=== PATIENT | male | born 1965 | race Caucasian/White ===

== ENCOUNTER 2018-11-15 23:06 | Inpatient (IN) | payer MEDICAID ==
[~2018-11-15] VITALS: Ht 172.7 cm; Wt 71.9 kg
[2018-11-15] MEDS ORDERED: NO HOME MEDS (23:20)
[2018-11-15 23:30] LABS: BASOPHILS # (AUTO) 0.1 X10'3 (0-0.2); BASOPHILS % (AUTO) 0.7 % (0-1); EOSINOPHILS % (AUTO) 0.2 % (0-6); HEMOGLOBIN 14.8 g/dl (14.0-17.9); LYMPHOCYTES # (AUTO) 1.7 X10'3 (1.1-4.8); MEAN CORPUSCULAR HGB CONC 32.9 g/dL (33.0-36.5); MEAN CORPUSCULAR VOLUME 94.2 FL (78-98); MONOCYTES # (AUTO) 0.4 X10'3 (0-0.9); MONOCYTES % (AUTO) 5.8 % (2-12)
[2018-11-15 23:32] LABS: HEMATOCRIT 44.9 % (42.0-52.0); LYMPHOCYTES % (AUTO) 22.2 % (21-51); NEUTROPHILS # (AUTO) 5.4 X10'3 (1.8-7.7); NEUTROPHILS % (AUTO) 71.1 % (42-75); PLATELET COUNT 186 X10'3 (140-440); RED BLOOD COUNT 4.77 X10'6 (4.70-6.10); RED CELL DISTRIBUTION WIDTH 14.7 % (11.5-14.5); WHITE BLOOD COUNT 7.6 X10'3 (4.5-11.0)
[2018-11-15 23:39] LABS: ALANINE AMINOTRANSFERASE 27 U/L (12-78); ALBUMIN 2.7 G/DL (3.4-5.0); ALBUMIN/GLOBULIN RATIO 0.7 (1.1-1.5); ALKALINE PHOSPHATASE 69 IU/L (46-116); ANION GAP 9 (8-16); ASPARTATE AMINO TRANSFERASE 32 U/L (10-37); BILIRUBIN,TOTAL 0.8 MG/DL (0.1-1.0); BLOOD UREA NITROGEN 16 MG/DL (7-18); BUN/CREATININE RATIO 14.2 (5.4-32.0); CALCIUM 7.9 MG/DL (8.5-10.1); CHLORIDE 108 MMOL/L (99-107); CREATININE 1.13 MG/DL (0.60-1.10); GLUCOSE 117 MG/DL (70-104); POTASSIUM 4.2 MMOL/L (3.5-5.1); SODIUM 141 MMOL/L (135-145); TOTAL CARBON DIOXIDE 24.2 MMOL/L (24-32); TOTAL PROTEIN 6.4 G/DL (6.4-8.2); eGFR 68 ML/MIN
[2018-11-16 00:11] LABS: PARTIAL THROMBOPLASTIN TIME 25 SECONDS (22-32)
--- NOTE | 2018-11-16 00:38 | NUR ---
PER MD WEAVER, OKAY TO HOLD OFF ON COLLECTING URINE FROM PT AT THIS TIME, A URINE WAS COLLECTED BY TRANSFERRING FACILITY PRIOR TO TRANSFER
[2018-11-16] MEDS ORDERED: furosemide 10 MG/1 ML 10ml inj IV ONE (00:45)
[2018-11-16] MEDS ORDERED: furosemide 40mg/4ml inj IV ONE ×2 (01:10→11:10)
[2018-11-16] MEDS ORDERED: magnesium hydroxide 30ml (MOM) UD suspension PO PRN (01:25)
[2018-11-16] MEDS ORDERED: mag hydrox/Alum hydrox/simeth 30ml oral suspension PO PRN (01:25)
[2018-11-16] MEDS ORDERED: acetaminophen 325mg tablet PO PRN (01:25)
[2018-11-16] MEDS ORDERED: morphine 2 MG/ML inj. syringe IV PRN ×2 (01:25)
[2018-11-16] MEDS ORDERED: ondansetron/PF 4mg/2ml inj IV PRN (01:25)
[2018-11-16 03:05] VITALS: BP 153/127
--- NOTE | 2018-11-16 03:27 | NUR ---
Patient in room [facility] 3017. I have received report from BERNARDA Estrada and had the opportunity to ask questions and assume patient care. Addendum: 11/16/18 at 0633 by Carmel Miller RN Patient in room [facility] 3013. I have received report from Remington and had the opportunity to ask questions and assume patient care.
--- NOTE | 2018-11-16 06:35 | NUR ---
Problems reprioritized. Patient report given, questions answered & plan of care reviewed with Carmel MENCHACA/Bela MENCHACA.
[2018-11-16 07:05] VITALS: BP 164/125
[2018-11-16] MEDS ORDERED: carVEDilol 3.125mg tablet PO SCH (08:00)
[2018-11-16] MEDS: heparin, porcine 5000 units/ml vial SQ SCH ×2 (08:11→20:28)
--- NOTE | 2018-11-16 08:24 | NUR ---
Page sent to Dr. Fraga PAGER ID: [phone] MESSAGE: [id number] Agustin Mckeon, BP 166/124, no blood pressure medications. Please advise. Carmel MENCHACA [phone]
[2018-11-16 11:00] VITALS: BP 161/114
[2018-11-16] MEDS: carvedilol 6.25mg tablet PO SCH ×2 (11:26→20:29)
[2018-11-16] MEDS: lisinopril 20mg tablet PO SCH (11:27)
[2018-11-16 11:53] LABS: HEMOGLOBIN A1C 6.2 % (4.5-6.2)
[2018-11-16 12:03] LABS: CHOL/HDL RATIO 3.2 (0.00-4.99); CHOLESTEROL 67 MG/DL (0-200); HDL CHOLESTEROL 21 MG/DL (35-60); LDL CHOLESTEROL 46 MG/DL (50-100); TRIGLYCERIDES 64 MG/DL (20-135)
[2018-11-16 15:00] VITALS: BP 137/107
[2018-11-16] MEDS ORDERED: potassium CL 10mEq/100ml bag 100 ML IV PRN (16:00)
[2018-11-16] MEDS ORDERED: potassium Cl 20 mEq SR tablet PO PRN (16:00)
[2018-11-16] MEDS ORDERED: magnesium 4gm in 100ml NS 100 ML IV PRN (16:00)
[2018-11-16] MEDS ORDERED: magnesium Cl slow-release 64mg tablet PO PRN (16:00)
[2018-11-16] MEDS ORDERED: magnesium 2GM in 50ml NS 50 ML IV PRN (16:00)
--- NOTE | 2018-11-16 18:01 | NUR ---
I have reviewed and agree with all interventions, assessments performed and documented by Carmel MENCHACA.
--- NOTE | 2018-11-16 18:22 | NUR ---
Problems reprioritized. Patient report given, questions answered & plan of care reviewed with Gabby.
[2018-11-16 19:00] VITALS: BP 137/107
--- NOTE | 2018-11-16 19:12 | NUR ---
Patient in room [facility] 3017B. I have received report from BERNARDA Cramer and had the opportunity to ask questions and assume patient care. Patient awake for bedside report and stable at this time. Will continue to monitor closely.
[2018-11-16] MEDS: furosemide 40mg/4ml inj IV SCH (20:27)
[2018-11-16] MEDS ORDERED: carvedilol 6.25mg tablet PO ONE (22:35)
--- NOTE | 2018-11-16 22:49 | NUR ---
Patient has been trending high systolic and diastolic BP. Dr. Tubbs notified of 2200 BP 142/108. New orders received for one time give of 6.25mg carvedilol, DC 6.25 mg BID, start 12.5 mg BID.
[2018-11-16 23:00] VITALS: BP 133/104
[2018-11-17] VITALS (7 sets, daily range): BP systolic 129–142; BP diastolic 53–99
[2018-11-17 05:27] LABS: BASOPHILS # (AUTO) 0.1 X10'3 (0-0.2); BASOPHILS % (AUTO) 0.9 % (0-1); EOSINOPHILS # (AUTO) 0.1 X10'3 (0-0.9); EOSINOPHILS % (AUTO) 1.2 % (0-6); HEMATOCRIT 42.8 % (42.0-52.0); HEMOGLOBIN 14.1 g/dl (14.0-17.9); LYMPHOCYTES # (AUTO) 1.7 X10'3 (1.1-4.8); LYMPHOCYTES % (AUTO) 21.9 % (21-51); MEAN CORPUSCULAR HEMOGLOBIN 31.3 PG (27.0-31.0); MEAN CORPUSCULAR HGB CONC 32.8 g/dL (33.0-36.5); MEAN CORPUSCULAR VOLUME 95.3 FL (78-98); MEAN PLATELET VOLUME 10.3 FL (7.4-10.4); MONOCYTES # (AUTO) 0.5 X10'3 (0-0.9); MONOCYTES % (AUTO) 6.2 % (2-12); NEUTROPHILS # (AUTO) 5.3 X10'3 (1.8-7.7); NEUTROPHILS % (AUTO) 69.8 % (42-75); PLATELET COUNT 153 X10'3 (140-440); RED BLOOD COUNT 4.49 X10'6 (4.70-6.10); RED CELL DISTRIBUTION WIDTH 14.5 % (11.5-14.5); WHITE BLOOD COUNT 7.7 X10'3 (4.5-11.0)
[2018-11-17 05:56] LABS: ALANINE AMINOTRANSFERASE 19 U/L (12-78); ALBUMIN 2.4 G/DL (3.4-5.0); ALBUMIN/GLOBULIN RATIO 0.7 (1.1-1.5); ALKALINE PHOSPHATASE 59 IU/L (46-116); ANION GAP 7 (8-16); ASPARTATE AMINO TRANSFERASE 24 U/L (10-37); BILIRUBIN,TOTAL 0.9 MG/DL (0.1-1.0); BLOOD UREA NITROGEN 23 MG/DL (7-18); BUN/CREATININE RATIO 16.4 (5.4-32.0); CALCIUM 8.2 MG/DL (8.5-10.1); CHLORIDE 107 MMOL/L (99-107); GLUCOSE 107 MG/DL (70-104); POTASSIUM 3.7 MMOL/L (3.5-5.1); SODIUM 141 MMOL/L (135-145); TOTAL CARBON DIOXIDE 26.6 MMOL/L (24-32); TOTAL PROTEIN 5.8 G/DL (6.4-8.2); eGFR 53 ML/MIN
--- NOTE | 2018-11-17 06:24 | NUR ---
Patient in room PCU 3017. I have received report from Lloyd MENCHACA and had the opportunity to ask questions and assume patient care. Patient resting comfortably, and stable at time of transfer.
--- NOTE | 2018-11-17 06:26 | NUR ---
Problems reprioritized. Patient report given, questions answered & plan of care reviewed with BERNARDA Todd and BERNARDA Peoples.
[2018-11-17] MEDS: furosemide 40mg/4ml inj IV SCH ×2 (08:37→19:41)
[2018-11-17] MEDS: carVEDilol 12.5mg tablet PO SCH ×2 (08:38→19:41)
[2018-11-17] MEDS: lisinopril 20mg tablet PO SCH (08:38)
[2018-11-17] MEDS: heparin, porcine 5000 units/ml vial SQ SCH ×2 (08:39→19:41)
--- NOTE | 2018-11-17 18:24 | NUR ---
[place]rient[place] documentation: I have reviewed and agree with interventions, assessments performed and documented by Richelle MENCHACA. [place] Medication Administration: For this medication-pass time frame, medication were reviewed, dispensed, administered and documented per hospital policy by Richelle MENCHACA.
--- NOTE | 2018-11-17 18:25 | NUR ---
Problems reprioritized. Patient report given, questions answered & plan of care reviewed with. Patient sleeping comfortably. Patient stable at transfer of care.
--- NOTE | 2018-11-17 18:29 | NUR ---
Patient in room PCU 3017. I have received report from Peyton RN and Richelle RN and had the opportunity to ask questions and assume patient care.
[2018-11-18] VITALS (7 sets, daily range): BP systolic 116–152; BP diastolic 88–112
[2018-11-18 06:00] LABS: BASOPHILS # (AUTO) 0.1 X10'3 (0-0.2); BASOPHILS % (AUTO) 0.9 % (0-1); EOSINOPHILS # (AUTO) 0.1 X10'3 (0-0.9); EOSINOPHILS % (AUTO) 1.1 % (0-6); HEMATOCRIT 44.3 % (42.0-52.0); HEMOGLOBIN 14.4 g/dl (14.0-17.9); LYMPHOCYTES # (AUTO) 1.9 X10'3 (1.1-4.8); MEAN CORPUSCULAR HGB CONC 32.6 g/dL (33.0-36.5); MEAN CORPUSCULAR VOLUME 95.2 FL (78-98); MEAN PLATELET VOLUME 11.2 FL (7.4-10.4); MONOCYTES # (AUTO) 0.6 X10'3 (0-0.9); MONOCYTES % (AUTO) 8.1 % (2-12); NEUTROPHILS # (AUTO) 5.2 X10'3 (1.8-7.7); NEUTROPHILS % (AUTO) 65.9 % (42-75); PLATELET COUNT 176 X10'3 (140-440); RED BLOOD COUNT 4.65 X10'6 (4.70-6.10); RED CELL DISTRIBUTION WIDTH 14.3 % (11.5-14.5); WHITE BLOOD COUNT 7.8 X10'3 (4.5-11.0)
--- NOTE | 2018-11-18 06:15 | NUR ---
Problems reprioritized. Patient report given, questions answered & plan of care reviewed with BERNARDA Todd.
--- NOTE | 2018-11-18 06:20 | NUR ---
Patient in room PCU 3017. I have received report from BERNARDA Hallman and had the opportunity to ask questions and assume patient care.
[2018-11-18 06:40] LABS: ALANINE AMINOTRANSFERASE 19 U/L (12-78); ALBUMIN 2.4 G/DL (3.4-5.0); ALBUMIN/GLOBULIN RATIO 0.7 (1.1-1.5); ALKALINE PHOSPHATASE 58 IU/L (46-116); ANION GAP 9 (8-16); ASPARTATE AMINO TRANSFERASE 22 U/L (10-37); BILIRUBIN,TOTAL 0.6 MG/DL (0.1-1.0); BLOOD UREA NITROGEN 28 MG/DL (7-18); CALCIUM 8.1 MG/DL (8.5-10.1); CHLORIDE 106 MMOL/L (99-107); CREATININE 1.47 MG/DL (0.60-1.10); GLUCOSE 111 MG/DL (70-104); POTASSIUM 3.4 MMOL/L (3.5-5.1); SODIUM 142 MMOL/L (135-145); TOTAL CARBON DIOXIDE 26.8 MMOL/L (24-32); TOTAL PROTEIN 5.9 G/DL (6.4-8.2); eGFR 50 ML/MIN
[2018-11-18 07:19] LABS: LARGE PLATELETS FEW; PLATELET ESTIMATE NORMAL
[2018-11-18] MEDS: furosemide 40mg/4ml inj IV SCH (08:12)
[2018-11-18] MEDS: potassium Cl 20 mEq SR tablet PO PRN ×3 (08:12→19:46)
[2018-11-18] MEDS: heparin, porcine 5000 units/ml vial SQ SCH ×2 (08:12→19:45)
[2018-11-18] MEDS: spironolactone 25 MG tablet PO SCH (08:13)
[2018-11-18] MEDS: carVEDilol 12.5mg tablet PO SCH ×2 (08:13→19:46)
[2018-11-18] MEDS: lisinopril 20mg tablet PO SCH (08:17)
--- NOTE | 2018-11-18 18:35 | NUR ---
Problems reprioritized. Patient report given, questions answered & plan of care reviewed with Gerardo MENCHACA. Patient stable at transfer of care.
--- NOTE | 2018-11-18 18:36 | NUR ---
Patient in room PCU 3017. I have received report from BERNARDA Kim and had the opportunity to ask questions and assume patient care.
[2018-11-19 02:00] VITALS: BP 146/84
[2018-11-19 06:13] LABS: BASOPHILS # (AUTO) 0.1 X10'3 (0-0.2); BASOPHILS % (AUTO) 0.9 % (0-1); EOSINOPHILS % (AUTO) 0.1 % (0-6); HEMATOCRIT 47.4 % (42.0-52.0); HEMOGLOBIN 15.4 g/dl (14.0-17.9); LYMPHOCYTES # (AUTO) 2.1 X10'3 (1.1-4.8); LYMPHOCYTES % (AUTO) 26.7 % (21-51); MEAN CORPUSCULAR HGB CONC 32.5 g/dL (33.0-36.5); MEAN CORPUSCULAR VOLUME 95.2 FL (78-98); MEAN PLATELET VOLUME 11.4 FL (7.4-10.4); MONOCYTES # (AUTO) 0.6 X10'3 (0-0.9); NEUTROPHILS # (AUTO) 5.1 X10'3 (1.8-7.7); NEUTROPHILS % (AUTO) 64.3 % (42-75); PLATELET COUNT 185 X10'3 (140-440); RED BLOOD COUNT 4.98 X10'6 (4.70-6.10); RED CELL DISTRIBUTION WIDTH 14.5 % (11.5-14.5); WHITE BLOOD COUNT 7.9 X10'3 (4.5-11.0)
[2018-11-19 06:34] LABS: ALANINE AMINOTRANSFERASE 36 U/L (12-78); ALBUMIN 2.5 G/DL (3.4-5.0); ALBUMIN/GLOBULIN RATIO 0.7 (1.1-1.5); ALKALINE PHOSPHATASE 59 IU/L (46-116); ANION GAP 10 (8-16); ASPARTATE AMINO TRANSFERASE 63 U/L (10-37); BLOOD UREA NITROGEN 33 MG/DL (7-18); BUN/CREATININE RATIO 21.9 (5.4-32.0); CALCIUM 7.9 MG/DL (8.5-10.1); CHLORIDE 106 MMOL/L (99-107); CREATININE 1.51 MG/DL (0.60-1.10); GLUCOSE 114 MG/DL (70-104); POTASSIUM 4.4 MMOL/L (3.5-5.1); SODIUM 141 MMOL/L (135-145); TOTAL CARBON DIOXIDE 24.6 MMOL/L (24-32); TOTAL PROTEIN 5.9 G/DL (6.4-8.2); eGFR 49 ML/MIN
--- NOTE | 2018-11-19 06:36 | NUR ---
Problems reprioritized. Patient report given, questions answered & plan of care reviewed with BERNARDA Prajapati.
[2018-11-19 07:06] VITALS: BP 131/85
[2018-11-19 07:29] LABS: LARGE PLATELETS FEW; PLATELET ESTIMATE NORMAL
[2018-11-19] MEDS: carVEDilol 12.5mg tablet PO SCH (07:32)
[2018-11-19] MEDS: spironolactone 25 MG tablet PO SCH (07:32)
[2018-11-19] MEDS: lisinopril 20mg tablet PO SCH (07:32)
[2018-11-19] MEDS: heparin, porcine 5000 units/ml vial SQ SCH (07:33)
[2018-11-19] MEDS ORDERED: furosemide 20MG tablet PO SCH (08:00)
[2018-11-19] MEDS ORDERED: CARV-50 PO (09:11)
[2018-11-19] MEDS ORDERED: SPIR25TA PO (09:11)
[2018-11-19] MEDS ORDERED: LISI-600 PO (09:11)
[2018-11-19] MEDS ORDERED: FURO20TA4 PO (09:11)
[2018-11-19 11:00] VITALS: BP 107/71
--- NOTE | 2018-11-19 15:37 | NUR ---
called in rxs to [facility] [place]. Spoke to pharmacist directly.
== END 2018-11-19 12:17 | disposition home or self-care (01) | DRG 194 ==
LOC: ER 23:07 → PCU 3S 11-16 03:10
PROVIDERS: ADMIT Internal Medicine; ATTEND Family Medicine
DX: I13.0 Hypertensive heart and chronic kidney disease with heart failure and stage 1 through stage 4 chronic kidney disease, or unspecified chronic kidney disease (principal); N17.0 Acute kidney failure with tubular necrosis; I31.3 Pericardial effusion (noninflammatory); I08.1 Rheumatic disorders of both mitral and tricuspid valves; I42.7 Cardiomyopathy due to drug and external agent; I50.21 Acute systolic (congestive) heart failure; B19.20 Unspecified viral hepatitis C without hepatic coma; F41.9 Anxiety disorder, unspecified; F17.200 Nicotine dependence, unspecified, uncomplicated; N18.9 Chronic kidney disease, unspecified; F10.10 Alcohol abuse, uncomplicated; F15.10 Other stimulant abuse, uncomplicated; K42.9 Umbilical hernia without obstruction or gangrene; Z82.5 Family history of asthma and other chronic lower respiratory diseases; Z83.3 Family history of diabetes mellitus; Z71.51 Drug abuse counseling and surveillance of drug abuser; Z71.41 Alcohol abuse counseling and surveillance of alcoholic; Z71.6 Tobacco abuse counseling; E87.6 Hypokalemia
CPT/HCPCS: 36415; 71045; 80053; 80061; 83036; 83880; 84443; 84484; 85025; 85610; 85730; 87081; 93005; 93306; 96365; 96374; 99285; G0378; J1644; J1940

== ENCOUNTER 2022-09-18 21:51 | Emergency (ER) | payer MEDICAID ==
[~2022-09-18] VITALS: Ht 172.7 cm; Wt 75.0 kg
[~2022-09-18 21:51] MED LIST: CARV-50 PO; FURO20TA4 PO; LISI20TA28 PO; SPIR25TA PO
[2022-09-18 21:55] VITALS: TEMP 98.3
[2022-09-18 22:11] LABS: BASOPHILS # (AUTO) 0.1 X10'3 (0-0.2); BASOPHILS % (AUTO) 1.5 % (0-1); EOSINOPHILS # (AUTO) 0.2 X10'3 (0-0.9); EOSINOPHILS % (AUTO) 4.2 % (0-6); HEMATOCRIT 37.4 % (42.0-52.0); HEMOGLOBIN 12.1 g/dl (14.0-17.9); LYMPHOCYTES # (AUTO) 1.3 X10'3 (1.1-4.8); LYMPHOCYTES % (AUTO) 21.6 % (21-51); MEAN CORPUSCULAR HEMOGLOBIN 29.5 PG (27.0-31.0); MEAN CORPUSCULAR HGB CONC 32.3 g/dL (33.0-36.5); MEAN CORPUSCULAR VOLUME 91.5 FL (78-98); MEAN PLATELET VOLUME 8.5 FL (7.4-10.4); MONOCYTES # (AUTO) 0.6 X10'3 (0-0.9); MONOCYTES % (AUTO) 10.9 % (2-12); NEUTROPHILS # (AUTO) 3.6 X10'3 (1.8-7.7); NEUTROPHILS % (AUTO) 61.8 % (42-75); PLATELET COUNT 222 X10'3 (140-440); RED BLOOD COUNT 4.09 X10'6 (4.70-6.10); RED CELL DISTRIBUTION WIDTH 17.9 % (11.5-14.5); WHITE BLOOD COUNT 5.9 X10'3 (4.5-11.0)
[2022-09-18 22:26] LABS: ALANINE AMINOTRANSFERASE 18 U/L (12-78); ALBUMIN 2.9 G/DL (3.4-5.0); ALBUMIN/GLOBULIN RATIO 0.7 (1.1-1.5); ALKALINE PHOSPHATASE 80 IU/L (46-116); ANION GAP 12 (8-16); ASPARTATE AMINO TRANSFERASE 42 U/L (10-37); BILIRUBIN,TOTAL 1.7 MG/DL (0.1-1.0); BLOOD UREA NITROGEN 25 MG/DL (7-18); BUN/CREATININE RATIO 17.9 (10.0-20.0); CALCIUM 8.3 MG/DL (8.5-10.1); CHLORIDE 110 MMOL/L (99-107); GLUCOSE 82 MG/DL (70-104); POTASSIUM 3.2 MMOL/L (3.5-5.1); SODIUM 143 MMOL/L (135-145); TOTAL CARBON DIOXIDE 20.8 MMOL/L (24-32); TOTAL PROTEIN 6.8 G/DL (6.4-8.2); eGFR 52 ML/MIN
[2022-09-18] MEDS ORDERED: POTASSIUM BICARB 20meq eff tab 20 MEQ TABLET.EFF PO ONE (22:55)
[2022-09-18] MEDS ORDERED: normal saline 1000ml 1,000 ML IV ONE (22:55)
[2022-09-19 00:40] VITALS: BP 119/88; PULSE 101; RESP 16; O2SAT 95
[2022-09-19] MEDS ORDERED: CARV25TA PO (13:37)
[2022-09-19] MEDS ORDERED: POTA-208 PO (13:37)
[2022-09-19] MEDS ORDERED: ASPI-1265 PO (13:37)
[2022-09-19] MEDS ORDERED: FURO-150 PO (13:37)
[2022-09-19] MEDS ORDERED: LOSA50TA64 PO (13:37)
[2022-09-19] MEDS ORDERED: METO50TA16 PO (13:40)
== END 2022-09-19 00:42 | disposition home or self-care (01) ==
LOC: ER 21:51
DX: F41.0 Panic disorder [episodic paroxysmal anxiety] (principal); E86.0 Dehydration; I10 Essential (primary) hypertension; F15.10 Other stimulant abuse, uncomplicated; Z79.899 Other long term (current) drug therapy
CPT/HCPCS: 36415; 71045; 80053; 83880; 84484; 85025; 93005; 96360; 99285; J7030

== ENCOUNTER 2022-09-19 07:46 | Emergency (ER) | payer MEDICAID ==
[~2022-09-19] VITALS: Ht 172.7 cm; Wt 75.0 kg
[2022-09-19 07:51] VITALS: TEMP 98.6
[2022-09-19 08:31] VITALS: BP 107/60; PULSE 65; RESP 18; O2SAT 93
[2022-09-19] MEDS ORDERED: CARV25TA PO (13:37)
[2022-09-19] MEDS ORDERED: LOSA50TA64 PO (13:37)
[2022-09-19] MEDS ORDERED: FURO-150 PO (13:37)
[2022-09-19] MEDS ORDERED: ASPI-1265 PO (13:37)
[2022-09-19] MEDS ORDERED: POTA-208 PO (13:37)
[2022-09-19] MEDS ORDERED: METO50TA16 PO (13:40)
== END 2022-09-19 08:33 | disposition home or self-care (01) ==
LOC: ER 07:47
DX: K29.70 Gastritis, unspecified, without bleeding (principal); I10 Essential (primary) hypertension; F31.9 Bipolar disorder, unspecified; F15.90 Other stimulant use, unspecified, uncomplicated; Z79.899 Other long term (current) drug therapy
CPT/HCPCS: 99283

== ENCOUNTER 2022-09-19 13:13 | Emergency (ER) | payer MEDICAID ==
[~2022-09-19] VITALS: Ht 172.7 cm; Wt 75.0 kg
[2022-09-19] MEDS ORDERED: FURO-150 PO (13:37)
[2022-09-19] MEDS ORDERED: CARV25TA PO (13:37)
[2022-09-19] MEDS ORDERED: ASPI-1265 PO (13:37)
[2022-09-19] MEDS ORDERED: LOSA50TA64 PO (13:37)
[2022-09-19] MEDS ORDERED: POTA-208 PO (13:37)
[2022-09-19] MEDS ORDERED: METO50TA16 PO (13:40)
--- NOTE | 2022-09-19 13:42 | NUR ---
Resident was brouht in by [facility], in room 14, changed into green scrubs and is sitting on side of the bed quietly, no distress noted.
--- NOTE | 2022-09-19 13:46 | NUR ---
pt belongings inventoried and sent to room 27, belongings not in locker. Valuables (wallet) sent to registration safe.
--- NOTE | 2022-09-19 13:47 | NUR ---
rpd brought in pt car keys, keys placed into belongings bag, belongings sheet updated.
[2022-09-19 14:05] LABS: BASOPHILS # (AUTO) 0.1 X10'3 (0-0.2); BASOPHILS % (AUTO) 1.4 % (0-1); EOSINOPHILS # (AUTO) 0.2 X10'3 (0-0.9); EOSINOPHILS % (AUTO) 3.6 % (0-6); HEMATOCRIT 41.6 % (42.0-52.0); HEMOGLOBIN 13.3 g/dl (14.0-17.9); LYMPHOCYTES % (AUTO) 16.5 % (21-51); MEAN CORPUSCULAR HEMOGLOBIN 29.2 PG (27.0-31.0); MEAN CORPUSCULAR HGB CONC 31.9 g/dL (33.0-36.5); MEAN CORPUSCULAR VOLUME 91.6 FL (78-98); MONOCYTES # (AUTO) 0.6 X10'3 (0-0.9); NEUTROPHILS % (AUTO) 68.5 % (42-75); PLATELET COUNT 248 X10'3 (140-440); RED BLOOD COUNT 4.54 X10'6 (4.70-6.10); RED CELL DISTRIBUTION WIDTH 18.2 % (11.5-14.5); WHITE BLOOD COUNT 5.9 X10'3 (4.5-11.0)
[2022-09-19 14:14] LABS: ALANINE AMINOTRANSFERASE 16 U/L (12-78); ALBUMIN 3.5 G/DL (3.4-5.0); ALBUMIN/GLOBULIN RATIO 0.7 (1.1-1.5); ALKALINE PHOSPHATASE 99 IU/L (46-116); ANION GAP 11 (8-16); ASPARTATE AMINO TRANSFERASE 48 U/L (10-37); BILIRUBIN,TOTAL 2.2 MG/DL (0.1-1.0); BLOOD UREA NITROGEN 26 MG/DL (7-18); BUN/CREATININE RATIO 19.3 (10.0-20.0); CHLORIDE 107 MMOL/L (99-107); CREATININE 1.35 MG/DL (0.60-1.10); ETHANOL < 0.010 GM/DL (0.0-0.010); GLUCOSE 104 MG/DL (70-104); POTASSIUM 3.8 MMOL/L (3.5-5.1); SODIUM 141 MMOL/L (135-145); TOTAL PROTEIN 8.2 G/DL (6.4-8.2); eGFR 55 ML/MIN
[2022-09-19 14:38] LABS: URINE AMPHETAMINE SCREEN NEGATIVE (Neg); URINE BARBITUATE SCREEN NEGATIVE (Neg); URINE BENZODIAZEPINES SCREEN NEGATIVE (Neg); URINE CANNABINOID SCREEN POSITIVE (Neg); URINE COCAINE SCREEN NEGATIVE (Neg); URINE METHADONE SCREEN NEGATIVE (Neg); URINE OPIATE SCREEN NEGATIVE (Neg); URINE PHENCYCLIDINE SCREEN NEGATIVE (Neg)
--- NOTE | 2022-09-19 14:44 | NUR ---
The patient moved to bed 25 in the ER overflow from the main ER. He was cooperative with the move. He is alert and oriented. The patient stated he has been in [place] for 4 days. He has chronic homelessness and admits to recent methamphetamine abuse. He also stated he had a recent overdose on Fentanyl and "had to be revived" at [facility]. He denies any kind of psychosis. He denies that he is feeling like harming himself or others. 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 He stated that he has not taken any psychiatric medications for several weeks. He stated that he had been taking Zoloft. He is quite anxious to retrieve his car from being impounded. His speech is rapid. He appears much older than his stated age.
--- NOTE | 2022-09-19 15:43 | NUR ---
The patient's car was towed by [facility], [address] [place] [address], [place] [phone]. To get his car out of impound today the cost will be $370 and an additonal $70/day after today. 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 The car has a flat tire.
--- NOTE | 2022-09-19 15:46 | NUR ---
PACKET SENT TO [facility]
--- NOTE | 2022-09-19 17:01 | NUR ---
The patient is resting on his bed
[2022-09-19] MEDS ORDERED: carVEDilol 12.5mg tablet PO SCH (17:30)
--- NOTE | 2022-09-19 19:37 | NUR ---
Patilent will be discharged to the [facility]. He exhibits understanding of disch inst. No distress. Patient was given a meal to go, weather appropiate clothing, he will be given a taxi too. Patient is homeless.
[2022-09-19 19:41] VITALS: BP 107/59; PULSE 57; RESP 16; TEMP 97; O2SAT 97
[2022-09-19] MEDS ORDERED: sertraline 50mg tablet PO SCH (21:00)
[2022-09-20] MEDS ORDERED: potassium Cl 20 mEq SR tablet PO SCH (08:00)
[2022-09-20] MEDS ORDERED: furosemide 20MG tablet PO SCH (08:00)
[2022-09-20] MEDS ORDERED: aspirin 81mg tab.chew PO SCH (08:00)
[2022-09-20] MEDS ORDERED: losartan 50mg tablet PO SCH (08:00)
== END 2022-09-19 20:04 | disposition home or self-care (01) ==
LOC: ER 13:14
DX: R10.9 Unspecified abdominal pain (principal); Z20.822 Contact with and (suspected) exposure to COVID-19; I10 Essential (primary) hypertension; F39 Unspecified mood [affective] disorder; F15.10 Other stimulant abuse, uncomplicated; Z79.899 Other long term (current) drug therapy; Z79.1 Long term (current) use of non-steroidal anti-inflammatories (NSAID); Z79.2 Long term (current) use of antibiotics
CPT/HCPCS: 36415; 80053; 80305; 80320; 84443; 85025; 87811; 99285

== ENCOUNTER 2022-09-21 07:40 | Emergency (ER) | payer MEDICAID ==
[~2022-09-21] VITALS: Ht 172.7 cm; Wt 72.7 kg
[~2022-09-21 07:40] MED LIST changes: +ASPI-1265 PO; -CARV-50 PO; +CARV25TA PO; +FURO-150 PO; -FURO20TA4 PO; -LISI20TA28 PO; +LOSA50TA64 PO; +POTA-208 PO; -SPIR25TA PO
[2022-09-21 07:50] VITALS: TEMP 97.6
[2022-09-21 07:59] LABS: BASOPHILS # (AUTO) 0.1 X10'3 (0-0.2); BASOPHILS % (AUTO) 1.5 % (0-1); EOSINOPHILS # (AUTO) 0.2 X10'3 (0-0.9); EOSINOPHILS % (AUTO) 3.4 % (0-6); HEMATOCRIT 42.7 % (42.0-52.0); HEMOGLOBIN 13.7 g/dl (14.0-17.9); LYMPHOCYTES # (AUTO) 1.1 X10'3 (1.1-4.8); LYMPHOCYTES % (AUTO) 19.7 % (21-51); MEAN CORPUSCULAR HEMOGLOBIN 29.5 PG (27.0-31.0); MEAN CORPUSCULAR HGB CONC 32.2 g/dL (33.0-36.5); MEAN CORPUSCULAR VOLUME 91.5 FL (78-98); MEAN PLATELET VOLUME 8.6 FL (7.4-10.4); MONOCYTES # (AUTO) 0.5 X10'3 (0-0.9); NEUTROPHILS # (AUTO) 3.5 X10'3 (1.8-7.7); NEUTROPHILS % (AUTO) 65.4 % (42-75); PLATELET COUNT 264 X10'3 (140-440); RED BLOOD COUNT 4.67 X10'6 (4.70-6.10); RED CELL DISTRIBUTION WIDTH 18.5 % (11.5-14.5); WHITE BLOOD COUNT 5.4 X10'3 (4.5-11.0)
[2022-09-21 08:14] LABS: ALANINE AMINOTRANSFERASE 19 U/L (12-78); ALBUMIN 3.4 G/DL (3.4-5.0); ALBUMIN/GLOBULIN RATIO 0.7 (1.1-1.5); ALKALINE PHOSPHATASE 97 IU/L (46-116); ANION GAP 7 (8-16); ASPARTATE AMINO TRANSFERASE 45 U/L (10-37); BILIRUBIN,TOTAL 2.1 MG/DL (0.1-1.0); BLOOD UREA NITROGEN 16 MG/DL (7-18); BUN/CREATININE RATIO 17.2 (10.0-20.0); CALCIUM 9.1 MG/DL (8.5-10.1); CHLORIDE 105 MMOL/L (99-107); CREATININE 0.93 MG/DL (0.60-1.10); GLUCOSE 109 MG/DL (70-104); POTASSIUM 3.9 MMOL/L (3.5-5.1); SODIUM 140 MMOL/L (135-145); TOTAL CARBON DIOXIDE 27.7 MMOL/L (24-32); TOTAL PROTEIN 8.1 G/DL (6.4-8.2); eGFR 84 ML/MIN
[2022-09-21] MEDS ORDERED: FURO-150 PO (09:27)
[2022-09-21] MEDS ORDERED: LOSA25TA96 PO (09:27)
[2022-09-21] MEDS ORDERED: SPIR25TA5 PO (09:27)
[2022-09-21] MEDS ORDERED: METO50TA16 PO (09:27)
[2022-09-21] MEDS ORDERED: CARV-50 PO (09:27)
[2022-09-21 09:33] VITALS: BP 127/73; PULSE 64; RESP 15; O2SAT 93
== END 2022-09-21 09:54 | disposition home or self-care (01) ==
LOC: ER 07:40
DX: R06.02 Shortness of breath (principal); I10 Essential (primary) hypertension; F15.90 Other stimulant use, unspecified, uncomplicated; Z72.89 Other problems related to lifestyle; Z86.19 Personal history of other infectious and parasitic diseases; Z79.82 Long term (current) use of aspirin; Z79.899 Other long term (current) drug therapy
CPT/HCPCS: 36415; 71045; 80053; 83880; 84484; 85025; 93005; 99285

== ENCOUNTER 2022-10-01 14:45 | Emergency (ER) | payer MEDICAID ==
[~2022-10-01] VITALS: Ht 172.7 cm; Wt 68.2 kg
[~2022-10-01 14:45] MED LIST changes: +CARV-50 PO; +LOSA25TA96 PO; +METO50TA16 PO; +SPIR25TA5 PO
[2022-10-01 16:23] LABS: BASOPHILS # (AUTO) 0.1 X10'3 (0-0.2); BASOPHILS % (AUTO) 0.9 % (0-1); EOSINOPHILS # (AUTO) 0.3 X10'3 (0-0.9); EOSINOPHILS % (AUTO) 4.9 % (0-6); HEMATOCRIT 38.3 % (42.0-52.0); HEMOGLOBIN 12.2 g/dl (14.0-17.9); LYMPHOCYTES # (AUTO) 0.6 X10'3 (1.1-4.8); LYMPHOCYTES % (AUTO) 9.1 % (21-51); MEAN CORPUSCULAR HEMOGLOBIN 29.8 PG (27.0-31.0); MEAN CORPUSCULAR HGB CONC 31.8 g/dL (33.0-36.5); MEAN CORPUSCULAR VOLUME 93.9 FL (78-98); MEAN PLATELET VOLUME 9.8 FL (7.4-10.4); MONOCYTES # (AUTO) 0.4 X10'3 (0-0.9); MONOCYTES % (AUTO) 6.6 % (2-12); NEUTROPHILS # (AUTO) 5.1 X10'3 (1.8-7.7); NEUTROPHILS % (AUTO) 78.5 % (42-75); PLATELET COUNT 157 X10'3 (140-440); RED BLOOD COUNT 4.08 X10'6 (4.70-6.10); RED CELL DISTRIBUTION WIDTH 19.3 % (11.5-14.5); WHITE BLOOD COUNT 6.5 X10'3 (4.5-11.0)
[2022-10-01 17:02] LABS: PLATELET ESTIMATE NORMAL
[2022-10-01 17:03] LABS: ANISOCYTOSIS 2+; POIKILOCYTOSIS 1+
[2022-10-01 17:04] LABS: ALANINE AMINOTRANSFERASE 14 U/L (12-78); ALBUMIN/GLOBULIN RATIO 0.7 (1.1-1.5); ALKALINE PHOSPHATASE 90 IU/L (46-116); ANION GAP 10 (8-16); ASPARTATE AMINO TRANSFERASE 29 U/L (10-37); BLOOD UREA NITROGEN 22 MG/DL (7-18); BUN/CREATININE RATIO 22.2 (10.0-20.0); CALCIUM 9.1 MG/DL (8.5-10.1); CHLORIDE 107 MMOL/L (99-107); CREATININE 0.99 MG/DL (0.60-1.10); GLUCOSE 155 MG/DL (70-104); POTASSIUM 3.3 MMOL/L (3.5-5.1); SODIUM 142 MMOL/L (135-145); TOTAL CARBON DIOXIDE 24.8 MMOL/L (24-32); TOTAL PROTEIN 7.1 G/DL (6.4-8.2); eGFR 78 ML/MIN
[2022-10-01] MEDS ORDERED: magnesium oxide 400mg tablet PO ONE ×2 (18:40→19:45)
[2022-10-01] MEDS ORDERED: potassium Cl 20 mEq SR tablet PO ONE ×2 (18:40→19:45)
[2022-10-01] MEDS ORDERED: METO50TA17 PO ×2 (19:23→19:40)
[2022-10-01] MEDS ORDERED: SPIR25TA5 PO ×2 (19:23→19:40)
[2022-10-01] MEDS ORDERED: CARV-50 PO ×2 (19:23→19:40)
[2022-10-01] MEDS ORDERED: LOSA25TA96 PO ×2 (19:23→19:40)
[2022-10-01 19:27] VITALS: TEMP 97.8
[2022-10-01] MEDS ORDERED: POTA-208 PO (19:40)
[2022-10-01] MEDS ORDERED: ASPI-1265 PO (19:40)
[2022-10-01] MEDS ORDERED: FURO-150 PO (19:40)
[2022-10-01] MEDS ORDERED: carVEDilol 12.5mg tablet PO STA (19:41)
[2022-10-01] MEDS ORDERED: furosemide 20MG tablet PO ONE (19:45)
[2022-10-01] MEDS ORDERED: aspirin 81mg tab.chew PO ONE (19:45)
[2022-10-01] MEDS ORDERED: losartan 25mg tablet PO STA (19:48)
[2022-10-01] MEDS ORDERED: spironolactone 25 MG tablet PO ONE (19:50)
[2022-10-01 20:31] VITALS: BP 133/75; PULSE 88; RESP 18; O2SAT 97
== END 2022-10-01 20:33 | disposition home or self-care (01) ==
LOC: ER 14:46
DX: R53.1 Weakness (principal); I11.9 Hypertensive heart disease without heart failure; F31.9 Bipolar disorder, unspecified; F15.10 Other stimulant abuse, uncomplicated; Z79.899 Other long term (current) drug therapy; Z91.199 Patient's noncompliance with other medical treatment and regimen due to unspecified reason
CPT/HCPCS: 36415; 71045; 80053; 83735; 83880; 84484; 85008; 85025; 93005; 99285

== ENCOUNTER 2022-12-04 08:32 | Inpatient (IN) | payer MEDICAID ==
[2022-12-04] VITALS (15 sets, daily range): BP systolic 83–147; BP diastolic 50–114; PULSE 106–151; RESP 24–28; O2SAT 78–98
[~2022-12-04] VITALS: Ht 160 cm; Wt 64.0 kg
[~2022-12-04 08:32] MED LIST changes: -CARV25TA PO; +LOSA-415 PO; -LOSA25TA96 PO; -LOSA50TA64 PO; -METO50TA16 PO; +METO50TA17 PO
[2022-12-04] MEDS ORDERED: diltiazem 5mg/ml 5ml inj. IV ONE (08:50)
[2022-12-04] MEDS ORDERED: LORazepam 2 mg/ml vial IV ONE ×3 (08:50→11:20)
[2022-12-04] MEDS ORDERED: diltiazem-NS 100mg/100ml 100 ML IV SCH (08:50)
[2022-12-04] MEDS ORDERED: thiamine 100mg/ml 2ml inj. IV ONE (08:50)
[2022-12-04] MEDS ORDERED: normal saline 1000ml 1,000 ML IV ONE ×3 (08:50→15:55)
[2022-12-04 09:36] LABS: BASOPHILS % (AUTO) 0.4 % (0-1); EOSINOPHILS % (AUTO) 0 % (0-6); LYMPHOCYTES # (AUTO) 0.8 X10'3 (1.1-4.8); LYMPHOCYTES % (AUTO) 6.5 % (21-51); MEAN PLATELET VOLUME 9.1 FL (7.4-10.4); MONOCYTES # (AUTO) 1.1 X10'3 (0-0.9); NEUTROPHILS % (AUTO) 84.1 % (42-75); RED CELL DISTRIBUTION WIDTH 18.6 % (11.5-14.5); WHITE BLOOD COUNT 11.9 X10'3 (4.5-11.0)
[2022-12-04 09:44] LABS: ALANINE AMINOTRANSFERASE 27 U/L (12-78); ALKALINE PHOSPHATASE 113 IU/L (46-116); ANION GAP 26 (8-16); BILIRUBIN,TOTAL 5.1 MG/DL (0.1-1.0); BLOOD UREA NITROGEN 19 MG/DL (7-18); BUN/CREATININE RATIO 13.6 (10.0-20.0); CALCIUM 9.9 MG/DL (8.5-10.1); CHLORIDE 98 MMOL/L (99-107); ETHANOL < 10 MG/DL (<10); PRO BRAIN NATRIURETIC PEPTIDE 15560 PG/ML (0-125); SODIUM 134 MMOL/L (135-145); eCRCL 47 ML/MIN; eGFR 52 ML/MIN
[2022-12-04 09:54] LABS: ALBUMIN/GLOBULIN RATIO 0.8 (1.1-1.5); ASPARTATE AMINO TRANSFERASE 84 U/L (10-37); POTASSIUM 4.7 MMOL/L (3.5-5.1); TOTAL PROTEIN 8.9 G/DL (6.4-8.2)
[2022-12-04 09:58] LABS: ACETONE NEGATIVE (NEGATIVE)
[2022-12-04 09:59] LABS: HEMATOCRIT 40.4 % (42.0-52.0); HEMOGLOBIN 13.3 g/dl (14.0-17.9); MEAN CORPUSCULAR HEMOGLOBIN 32.2 PG (27.0-31.0); MEAN CORPUSCULAR HGB CONC 32.8 g/dL (33.0-36.5); MEAN CORPUSCULAR VOLUME 98.3 FL (78-98); PLATELET COUNT 266 X10'3 (140-440); RED BLOOD COUNT 4.12 X10'6 (4.70-6.10)
[2022-12-04 10:03] LABS: GLUCOSE 26 MG/DL (70-104)
[2022-12-04 10:04] LABS: TOTAL CARBON DIOXIDE 10.1 MMOL/L (24-32)
[2022-12-04] MEDS ORDERED: dextrose 50%-water 50ml dispensing syringe IV ONE ×2 (10:10→11:01)
[2022-12-04] MEDS: metoprolol tartrate 1mg/ml inj IV SCH ×3 (10:25→10:44)
[2022-12-04] MEDS ORDERED: dextrose 5%-water 1,000 ML IV SCH (11:20)
[2022-12-04] MEDS ORDERED: furosemide 10 MG/1 ML 10ml inj IV ONE (11:20)
[2022-12-04 11:29] LABS: ABG BASE EXCESS -22.5 mmol/L (-2.0-2.0); ABG HCO3 5.1 mmol/L (22.0-26.0); ABG OXYGEN SATURATION 97.3 % (94-97); ABG PCO2 (T) 16.4 mmHg (35.0-48.0); ABG PH (T) 7.107 (7.340-7.440); ABG PO2 (T) 119.7 mmHg (75.0-100.0); ALLEN'S TEST POSITIVE; FCOHb 0.4 % (0.0-3.9); FHHb 2.7 % (0.0-5.0); FMetHb 0.3 % (0.0-1.5); FO2Hb 96.6 % (94-97); MODE ROOM AIR; TOTAL HEMOGLOBIN 12.5 G/dl (14.0-17.9)
--- NOTE | 2022-12-04 11:37 | NUR ---
intubation note: RT and ED MD at bedside 1137- 20 mg etomidate IVP given by BERNARDA Taylor 1137- 100 mg Rocc IVP given by BERNARDA Taylor HR 149 BP 146/108 1139- ETT 8.0 w/ color change. 25 at teeth
[2022-12-04] MEDS ORDERED: sodium bicarbonate (8.4%) 1 mEq/ml syringe IV ONE (11:40)
[2022-12-04] MEDS ORDERED: ketamine 10mg/ml 20ml inj 100 MG in normal saline 100ml IV soln 90 ML IV SCH (11:40)
[2022-12-04] MEDS ORDERED: esmolol/sodium cl bag 250 ML IV PRN (11:40)
[2022-12-04 12:21] LABS: ABG BASE EXCESS -22.4 mmol/L (-2.0-2.0); ABG HCO3 6.9 mmol/L (22.0-26.0); ABG OXYGEN SATURATION 99.5 % (94-97); ABG PCO2 (T) 26.3 mmHg (35.0-48.0); ABG PH (T) 7.038 (7.340-7.440); ABG PO2 (T) 271.3 mmHg (75.0-100.0); ALLEN'S TEST POSITIVE; FCOHb 0.3 % (0.0-3.9); FHHb 0.5 % (0.0-5.0); FMetHb 0.4 % (0.0-1.5); FO2Hb 98.8 % (94-97); MODE VENT - AC/PRVC; PEEP 5 cm H2O; RESPIRATORY RATE 24 b/min; TIDAL VOLUME 475 mL; TOTAL HEMOGLOBIN 12.6 G/dl (14.0-17.9)
[2022-12-04 12:27] LABS: APTT 29 SECONDS (22-32); INR 1.9 INR; PROTHROMBIN TIME 19.4 SECONDS (9.0-12.0)
--- NOTE | 2022-12-04 12:27 | NUR ---
RT advanced ETT to 27 at teeth per XRAY
[2022-12-04 12:58] LABS: LIPASE 15 U/L (16-77)
[2022-12-04 13:01] LABS: BILIRUBIN,URINE MODERATE (Neg); CLARITY,URINE CLEAR (Clear); GLUCOSE, URINE 100 mg/dl (Neg); KETONES,URINE NEGATIVE (Neg); LEUKOCYTE ESTERASE ,URINE NEGATIVE (Neg); NITRITES, URINE NEGATIVE (Neg); OCCULT BLOOD,URINE TRACE-INTACT (Neg); PH,URINE 5.5 (4.8-8.0); PROTEIN,URINE >=300 mg/dl (Neg)
[2022-12-04 13:02] LABS: ETHANOL < 10 MG/DL (<10)
--- NOTE | 2022-12-04 13:03 | NUR ---
lunch relief received report from penny martinez assuming care for 30 min black top machine operator at bedside awaiting new orders hr 106 afib 28 res 106 /87 pt remains on vent monitor leads on and functioning
[2022-12-04 13:05] LABS: URINE AMPHETAMINE SCREEN POSITIVE (Neg); URINE BARBITUATE SCREEN NEGATIVE (Neg); URINE BENZODIAZEPINES SCREEN NEGATIVE (Neg); URINE CANNABINOID SCREEN POSITIVE (Neg); URINE COCAINE SCREEN NEGATIVE (Neg); URINE METHADONE SCREEN NEGATIVE (Neg); URINE OPIATE SCREEN NEGATIVE (Neg); URINE PHENCYCLIDINE SCREEN NEGATIVE (Neg)
[2022-12-04 13:07] LABS: COLOR,URINE DARK YELLOW (Yellow); SQUAMOUS EPITHELIAL CELL,UR FEW /LPF (FEW); UA COLLECTION TYPE FOLEY CATH
[2022-12-04 13:08] LABS: BACTERIA,URINE FEW /HPF (Neg)
[2022-12-04 13:09] LABS: WBC,URINE 0-4 /HPF (0-4)
[2022-12-04] MEDS ORDERED: magnesium hydroxide 30ml (MOM) UD suspension PO PRN (13:10)
[2022-12-04] MEDS ORDERED: acetaminophen 325mg tablet PO PRN ×2 (13:10)
[2022-12-04] MEDS ORDERED: ondansetron/PF 4mg/2ml inj IV PRN (13:10)
[2022-12-04] MEDS ORDERED: LidoCAINE 2% Topical Jelly 11mL syringe TOP ONE (13:10)
[2022-12-04] MEDS ORDERED: sodium bicarbonate (8.4%) inj. 150 MEQ in dextrose 5%-water 850 ML IV SCH (13:20)
[2022-12-04 13:41] LABS: ACETONE NEGATIVE (NEGATIVE)
--- NOTE | 2022-12-04 14:05 | NUR ---
PT TO CT ON MONITOR WITH RN, RT AND CHIROPRACTIC PRACTICE MANAGER,
[2022-12-04] MEDS: sodium bicarbonate (8.4%) inj. 150 MEQ in dextrose 5%-water 1,000 ML IV SCH ×2 (14:27→23:40)
[2022-12-04] MEDS ORDERED: propofol 1000mg/100ml bottle 100 ML IV SCH (15:55)
--- NOTE | 2022-12-04 17:00 | NUR ---
Pt received to room ICU 2040 from ED. I have received report from Roberta CATERPILLAR TRACTOR OPERATOR and had the opportunity to ask questions and assume patient care.
[2022-12-04 17:11] LABS: ABG BASE EXCESS -14.5 mmol/L (-2.0-2.0); ABG HCO3 11.4 mmol/L (22.0-26.0); ABG OXYGEN SATURATION 99.7 % (94-97); ABG PCO2 (T) 25.8 mmHg (35.0-48.0); ABG PH (T) 7.255 (7.340-7.440); ABG PO2 (T) 204.5 mmHg (75.0-100.0); ALLEN'S TEST POSITIVE; FCOHb 0.3 % (0.0-3.9); FHHb 0.3 % (0.0-5.0); FMetHb 0.3 % (0.0-1.5); FO2Hb 99.1 % (94-97); MODE VENT - AC; PATIENT TEMPERATURE 35.8; PEEP 5 cm H2O; RESPIRATORY RATE 28 b/min; TIDAL VOLUME 475 mL; TOTAL HEMOGLOBIN 12.1 G/dl (14.0-17.9)
[2022-12-04] MEDS: metoprolol tartrate 50mg tablet PO SCH (18:24)
[2022-12-04] MEDS: albumin (human) 25% 100ml IV 100 ML IV SCH ×2 (18:28→23:40)
[2022-12-04] MEDS ORDERED: etomidate 2mg/ml inj. ONE (18:45)
[2022-12-04] MEDS ORDERED: rocuronium 10mg/ml inj IV ONE (18:45)
[2022-12-04] MEDS ORDERED: sodium bicarbonate (8.4%) inj. 1 MEQ/ML ML ONE (18:45)
[2022-12-04] MEDS: FENTANYL-0.9 % NACL/PF 100 ML IV PRN (19:42)
[2022-12-04] MEDS ORDERED: enoxaparin 40mg/0.4ml syringe SQ SCH (20:00)
[2022-12-04] MEDS ORDERED: rifaximin 20mg/ml oral suspension 60 ML BOTTLE PO SCH (21:00)
--- NOTE | 2022-12-04 21:00 | NUR ---
Shift note. Dr. Guajardo saw this pt several times prior to leaving with orders and plan updates. Pt meds adjusted to make sure he was not thrashing or bucking the vent. Pt arouses when suctioned. Oral care provided.
[2022-12-04 21:33] LABS: APTT 29 SECONDS (22-32); INR 2.3 INR; PROTHROMBIN TIME 23.8 SECONDS (9.0-12.0)
[2022-12-04 21:37] LABS: BASOPHILS % (AUTO) 0.4 % (0-1); EOSINOPHILS % (AUTO) 0.1 % (0-6); HEMATOCRIT 29.4 % (42.0-52.0); HEMOGLOBIN 9.6 g/dl (14.0-17.9); LYMPHOCYTES # (AUTO) 0.8 X10'3 (1.1-4.8); LYMPHOCYTES % (AUTO) 8.7 % (21-51); MEAN CORPUSCULAR HEMOGLOBIN 32.1 PG (27.0-31.0); MEAN CORPUSCULAR HGB CONC 32.8 g/dL (33.0-36.5); MEAN CORPUSCULAR VOLUME 97.7 FL (78-98); MEAN PLATELET VOLUME 8.5 FL (7.4-10.4); MONOCYTES # (AUTO) 0.7 X10'3 (0-0.9); MONOCYTES % (AUTO) 7.1 % (2-12); NEUTROPHILS % (AUTO) 83.7 % (42-75); PLATELET COUNT 161 X10'3 (140-440); RED CELL DISTRIBUTION WIDTH 17.5 % (11.5-14.5); WHITE BLOOD COUNT 9.5 X10'3 (4.5-11.0)
[2022-12-04 22:27] LABS: LARGE PLATELETS FEW; PLATELET ESTIMATE NORMAL; POLYCHROMASIA 1+
[2022-12-04 22:28] LABS: ANISOCYTOSIS 1+; ELLIPTOCYTES FEW
--- NOTE | 2022-12-04 23:12 | NUR ---
Problems reprioritized. Patient report given, questions answered & plan of care reviewed with Ye MENCHACA.
[2022-12-04] MEDS: famotidine/PF 10 mg/ml inj IV SCH (23:39)
[2022-12-05] VITALS (33 sets, daily range): BP systolic 86–132; BP diastolic 53–82; PULSE 86–135; RESP 9–28; O2SAT 94–98
[2022-12-05] MEDS: FENTANYL-0.9 % NACL/PF 100 ML IV PRN (00:43)
[2022-12-05 03:19] LABS: ABG BASE EXCESS 2.9 mmol/L (-2.0-2.0); ABG HCO3 23.8 mmol/L (22.0-26.0); ABG OXYGEN SATURATION 97.5 % (94-97); ABG PCO2 (T) 25.1 mmHg (35.0-48.0); ABG PH (T) 7.595 (7.340-7.440); ABG PO2 (T) 85.7 mmHg (75.0-100.0); ALLEN'S TEST Modified; FCOHb 0.2 % (0.0-3.9); FHHb 2.5 % (0.0-5.0); FMetHb 0.3 % (0.0-1.5); MODE ac/prvc; PATIENT TEMPERATURE 36.9; PEEP 5 cm H2O; RESPIRATORY RATE 28 b/min; TIDAL VOLUME 475 mL; TOTAL HEMOGLOBIN 10.8 G/dl (14.0-17.9)
[2022-12-05 07:11] LABS: BASOPHILS # (AUTO) 0.1 X10'3 (0-0.2); BASOPHILS % (AUTO) 0.9 % (0-1); EOSINOPHILS # (AUTO) 0.1 X10'3 (0-0.9); EOSINOPHILS % (AUTO) 0.7 % (0-6); HEMATOCRIT 31.6 % (42.0-52.0); HEMOGLOBIN 10.5 g/dl (14.0-17.9); LYMPHOCYTES # (AUTO) 0.9 X10'3 (1.1-4.8); LYMPHOCYTES % (AUTO) 8.3 % (21-51); MEAN CORPUSCULAR HEMOGLOBIN 32.1 PG (27.0-31.0); MEAN CORPUSCULAR HGB CONC 33.1 g/dL (33.0-36.5); MEAN CORPUSCULAR VOLUME 96.9 FL (78-98); MEAN PLATELET VOLUME 8.5 FL (7.4-10.4); MONOCYTES # (AUTO) 0.6 X10'3 (0-0.9); MONOCYTES % (AUTO) 5.4 % (2-12); NEUTROPHILS % (AUTO) 84.7 % (42-75); PLATELET COUNT 149 X10'3 (140-440); RED BLOOD COUNT 3.26 X10'6 (4.70-6.10); RED CELL DISTRIBUTION WIDTH 17.1 % (11.5-14.5); WHITE BLOOD COUNT 10.6 X10'3 (4.5-11.0)
[2022-12-05 07:25] LABS: ALANINE AMINOTRANSFERASE 932 U/L (12-78); ALBUMIN 3.2 G/DL (3.4-5.0); ALBUMIN/GLOBULIN RATIO 1.1 (1.1-1.5); ALKALINE PHOSPHATASE 75 IU/L (46-116); ANION GAP 7 (8-16); BILIRUBIN,TOTAL 2.9 MG/DL (0.1-1.0); BLOOD UREA NITROGEN 32 MG/DL (7-18); BUN/CREATININE RATIO 19.6 (10.0-20.0); CALCIUM 8.2 MG/DL (8.5-10.1); CHLORIDE 102 MMOL/L (99-107); CREATININE 1.63 MG/DL (0.60-1.10); GLUCOSE 86 MG/DL (70-104); MAGNESIUM 1.8 MG/DL (1.5-2.4); PHOSPHORUS 2.9 MG/DL (2.3-4.5); POTASSIUM 3.3 MMOL/L (3.5-5.1); SODIUM 137 MMOL/L (135-145); eCRCL 41 ML/MIN; eGFR 44 ML/MIN
[2022-12-05] MEDS ORDERED: normal saline 1000ml 1,000 ML IV SCH (07:30)
[2022-12-05 07:47] LABS: ASPARTATE AMINO TRANSFERASE 3539 U/L (10-37)
[2022-12-05] MEDS ORDERED: thiamine 100mg/ml 2ml inj. IV SCH (08:00)
[2022-12-05] MEDS: albumin (human) 25% 100ml IV 100 ML IV SCH (09:01)
[2022-12-05] MEDS: thiamine inj. 500 MG in normal saline 100ml IV soln 100 ML IV SCH ×3 (09:01→23:40)
[2022-12-05] MEDS: folic acid 1mg/0.2ml inj IV SCH (09:02)
[2022-12-05] MEDS: metoprolol tartrate 50mg tablet PO SCH (09:02)
[2022-12-05] MEDS: CefTRIAXone/D5W-Rocephin 1gm 50 ML IV SCH (09:02)
[2022-12-05] MEDS: famotidine/PF 10 mg/ml inj IV SCH (09:02)
[2022-12-05] MEDS: rifaximin 550mg tablet PO SCH ×3 (09:59→21:43)
--- NOTE | 2022-12-05 11:37 | NUR ---
Malnutrition consult re: "underweight, unhoused". Pt unsure of wt loss though also reports 14-23 lb wt loss with decreased appetite/PO intake per malnutrition risk screen with RN. Unable to obtain information from pt at this time d/t intubation. Current scaled weight of 76.5 kg is higher than documented wt hx in EMR with range of 68.18-75 kg 11/21/18-10/01/22. Pt currently NPO with PO intake hx unknown. No documented decrease in muscle strength or edema. No visible fat or muscle wasting appreciated during bedside visit. Pt currently lacks a minimum of two criteria for malnutrition though at a high risk given h/o EtOH/illicit drug use. Pt presented with c/o SOB and admit for sepsis, acute hypoxemic respiratory failure, metabolic acidosis, metabolic encephalopathy, A.fib with RVR, and EtOH liver disease. Propofol visualized at bedside to be held at this time. Per physician attempts will be made for extubation so no nutrition support to be implemented at this time, though will initiate nutrition support if pt is unable to be extubated. Pt currently receiving routine Thiamine and Folic acid, physician agrees to routine MVI given EtOH hx. Also d/w physician recommendation for D5 given episodes of hypoglycemia with no nutrition support, pt now receiving D5/NS at 150 mL/hr providing 612 kcal/day. No documented BM since admit, PRN bowel care available. Will continue to follow closely and make recommendations as appropriate. Recommendations: 1) IF TF and no Propofol, continuous Vital AF via OGT with 75 mL/hr goal rate. Begin at 35 mL/hr and advance by 20 mL Q8H as tolerated to goal rate, to provide 1800 mL total volume/day, 2160 kcal, 135 g protein, and 1460 mL water; discontinue D5 IF nutrition support is initiated 2) Monitor Propofol rate and need to adjust recs 3) IF TF, additional water flush per physician given compromised liver function; monitor serum Na 4) IF TF, prealbumin q Thursday/ 5) Daily scaled weights 6) Routine Thiamine, Folic acid, and MVI d/t EtOH hx 7) Routine bowel care 8) Advance to heart healthy diet as medically indicated following extubation; monitor need for ONS/additional protein Addendum: 12/05/22 at [address] Amended: Links added.
[2022-12-05] MEDS: lactulose 20gm/30ml cup PO SCH ×2 (12:22→21:43)
[2022-12-05] MEDS: dextrose 5%-normal saline 1,000 ML IV SCH ×3 (12:24→19:49)
[2022-12-05] MEDS: furosemide 40mg/4ml inj IV SCH ×2 (16:03→21:43)
[2022-12-05] MEDS ORDERED: UNABLE TO OBTAIN (16:18)
[2022-12-05] MEDS ORDERED: potassium Cl 40MEQ/270ML bag 270 ML IV PRN (17:00)
[2022-12-05] MEDS ORDERED: potassium Cl 20 mEq SR tablet PO PRN ×2 (17:00)
[2022-12-05] MEDS ORDERED: potassium Cl 40MEQ/1/2NS 520ml 520 ML IV PRN (17:00)
--- NOTE | 2022-12-05 18:30 | NUR ---
Patient in room ICU 2040. I have received report from Feroz MENCHACA and had the opportunity to ask questions and assume patient care.
[2022-12-05] MEDS: LORazepam 2 mg/ml vial IV PRN (19:50)
[2022-12-05] MEDS ORDERED: furosemide 40mg/4ml inj IV SCH (20:00)
[2022-12-05] MEDS: metoprolol tartrate 25mg tablet PO SCH (21:44)
[2022-12-05] MEDS ORDERED: Dextrose 10%-water IV solution 1,000 ML IV SCH (22:15)
[2022-12-05 22:47] LABS: ALBUMIN 3.2 G/DL (3.4-5.0); ANION GAP 4 (8-16); BLOOD UREA NITROGEN 27 MG/DL (7-18); BUN/CREATININE RATIO 17.9 (10.0-20.0); CALCIUM 8.1 MG/DL (8.5-10.1); CHLORIDE 105 MMOL/L (99-107); CREATININE 1.51 MG/DL (0.60-1.10); GLUCOSE 123 MG/DL (70-104); MAGNESIUM 1.7 MG/DL (1.5-2.4); PHOSPHORUS 2.4 MG/DL (2.3-4.5); SODIUM 142 MMOL/L (135-145); TOTAL CARBON DIOXIDE 32.9 MMOL/L (24-32); eCRCL 44 ML/MIN; eGFR 48 ML/MIN
[2022-12-05 22:56] LABS: POTASSIUM 2.9 MMOL/L (3.5-5.1)
[2022-12-05] MEDS: dexmedetomidine inj. 400 MCG in normal saline 100ml IV soln 96 ML IV SCH (23:39)
[2022-12-06] VITALS (30 sets, daily range): BP systolic 90–130; BP diastolic 58–80; PULSE 66–87; RESP 8–17; O2SAT 93–99
[2022-12-06] MEDS: potassium Cl 20mEq/100mL bag 100 ML IV SCH ×3 (00:26→02:22)
[2022-12-06] MEDS: morphine 2 MG/ML inj. syringe IV PRN (00:40)
[2022-12-06 03:14] LABS: ABG BASE EXCESS 5.2 mmol/L (-2.0-2.0); ABG HCO3 28.2 mmol/L (22.0-26.0); ABG PCO2 (T) 35.2 mmHg (35.0-48.0); ABG PH (T) 7.521 (7.340-7.440); ALLEN'S TEST Modified; FCOHb 0.5 % (0.0-3.9); FMetHb 0.3 % (0.0-1.5); FO2Hb 93.2 % (94-97); MODE ac/prvc; PATIENT TEMPERATURE 36.7; PEEP 5 cm H2O; RESPIRATORY RATE 16 b/min; TIDAL VOLUME 475 mL; TOTAL HEMOGLOBIN 11.7 G/dl (14.0-17.9)
[2022-12-06 04:53] LABS: BASOPHILS % (AUTO) 0.7 % (0-1); EOSINOPHILS # (AUTO) 0.1 X10'3 (0-0.9); EOSINOPHILS % (AUTO) 0.8 % (0-6); HEMATOCRIT 32.3 % (42.0-52.0); HEMOGLOBIN 10.6 g/dl (14.0-17.9); LYMPHOCYTES # (AUTO) 0.4 X10'3 (1.1-4.8); LYMPHOCYTES % (AUTO) 6.7 % (21-51); MEAN CORPUSCULAR HEMOGLOBIN 32.2 PG (27.0-31.0); MEAN CORPUSCULAR VOLUME 97.5 FL (78-98); MEAN PLATELET VOLUME 8.4 FL (7.4-10.4); MONOCYTES # (AUTO) 0.4 X10'3 (0-0.9); MONOCYTES % (AUTO) 6.3 % (2-12); NEUTROPHILS # (AUTO) 5.7 X10'3 (1.8-7.7); NEUTROPHILS % (AUTO) 85.5 % (42-75); PLATELET COUNT 110 X10'3 (140-440); RED BLOOD COUNT 3.31 X10'6 (4.70-6.10); WHITE BLOOD COUNT 6.6 X10'3 (4.5-11.0)
[2022-12-06 05:09] LABS: ALANINE AMINOTRANSFERASE 750 U/L (12-78); ALBUMIN/GLOBULIN RATIO 1.1 (1.1-1.5); ALKALINE PHOSPHATASE 76 IU/L (46-116); ANION GAP 4 (8-16); BILIRUBIN,TOTAL 2.8 MG/DL (0.1-1.0); BLOOD UREA NITROGEN 23 MG/DL (7-18); BUN/CREATININE RATIO 15.8 (10.0-20.0); CALCIUM 8.2 MG/DL (8.5-10.1); CHLORIDE 105 MMOL/L (99-107); CREATININE 1.46 MG/DL (0.60-1.10); GLUCOSE 129 MG/DL (70-104); MAGNESIUM 1.5 MG/DL (1.5-2.4); PHOSPHORUS 2.3 MG/DL (2.3-4.5); POTASSIUM 3.3 MMOL/L (3.5-5.1); SODIUM 142 MMOL/L (135-145); TOTAL CARBON DIOXIDE 33.1 MMOL/L (24-32); TOTAL PROTEIN 5.7 G/DL (6.4-8.2); eCRCL 45 ML/MIN; eGFR 50 ML/MIN
[2022-12-06 05:10] LABS: ASPARTATE AMINO TRANSFERASE 1591 U/L (10-37)
--- NOTE | 2022-12-06 06:15 | NUR ---
Problems reprioritized. Patient report given, questions answered & plan of care reviewed with Feroz MENCHACA.
[2022-12-06] MEDS ORDERED: Potassium Cl inj 40 MEQ in normal saline 250ml IV soln 250 ML IV ONE (07:10)
[2022-12-06] MEDS ORDERED: magnesium 2GM in 50ml NS 50 ML IV ONE (07:10)
[2022-12-06] MEDS ORDERED: acetaZOLAMIDE IV 500mg inj IV ONE (07:15)
[2022-12-06] MEDS: dextrose 5%-normal saline 1,000 ML IV SCH (07:16)
[2022-12-06] MEDS: lactulose 20gm/30ml cup PO SCH ×3 (07:48→20:06)
[2022-12-06] MEDS: folic acid 1mg/0.2ml inj IV SCH (07:48)
[2022-12-06] MEDS: famotidine/PF 10 mg/ml inj IV SCH (07:48)
[2022-12-06] MEDS: thiamine inj. 500 MG in normal saline 100ml IV soln 100 ML IV SCH ×3 (07:48→23:30)
[2022-12-06] MEDS: rifaximin 550mg tablet PO SCH ×2 (07:48→08:30)
[2022-12-06] MEDS: CefTRIAXone/D5W-Rocephin 1gm 50 ML IV SCH (07:48)
[2022-12-06] MEDS ORDERED: K and/or MAG REPLACEMENT MC SCH (08:00)
[2022-12-06] MEDS: metoprolol tartrate 25mg tablet PO SCH ×2 (08:31→20:06)
[2022-12-06] MEDS: furosemide 40mg/4ml inj IV SCH ×2 (08:31→20:05)
[2022-12-06] MEDS: dexmedetomidine inj. 400 MCG in normal saline 100ml IV soln 96 ML IV SCH ×2 (11:25→20:08)
--- NOTE | 2022-12-06 18:44 | NUR ---
Patient in room ICU 2040. I have received report from Feroz MENCHACA and had the opportunity to ask questions and assume patient care.
[2022-12-07] VITALS (31 sets, daily range): BP systolic 107–137; BP diastolic 73–95; PULSE 61–88; RESP 8–21; O2SAT 93–100
[2022-12-07] MEDS: LORazepam 2 mg/ml vial IV PRN ×2 (00:28→22:57)
[2022-12-07 02:13] LABS: BASOPHILS # (AUTO) 0.1 X10'3 (0-0.2); BASOPHILS % (AUTO) 0.9 % (0-1); EOSINOPHILS # (AUTO) 0.2 X10'3 (0-0.9); EOSINOPHILS % (AUTO) 4.3 % (0-6); HEMOGLOBIN 11.6 g/dl (14.0-17.9); LYMPHOCYTES # (AUTO) 0.6 X10'3 (1.1-4.8); LYMPHOCYTES % (AUTO) 10.1 % (21-51); MEAN CORPUSCULAR HEMOGLOBIN 31.4 PG (27.0-31.0); MEAN CORPUSCULAR HGB CONC 32.1 g/dL (33.0-36.5); MEAN CORPUSCULAR VOLUME 97.6 FL (78-98); MEAN PLATELET VOLUME 8.4 FL (7.4-10.4); MONOCYTES # (AUTO) 0.5 X10'3 (0-0.9); MONOCYTES % (AUTO) 8.4 % (2-12); NEUTROPHILS # (AUTO) 4.5 X10'3 (1.8-7.7); NEUTROPHILS % (AUTO) 76.3 % (42-75); PLATELET COUNT 118 X10'3 (140-440); RED BLOOD COUNT 3.68 X10'6 (4.70-6.10); RED CELL DISTRIBUTION WIDTH 17.9 % (11.5-14.5); WHITE BLOOD COUNT 5.9 X10'3 (4.5-11.0)
[2022-12-07] MEDS: dextrose 5%-normal saline 1,000 ML IV SCH ×2 (02:50→06:19)
[2022-12-07 03:11] LABS: ABG BASE EXCESS 4.5 mmol/L (-2.0-2.0); ABG HCO3 29.6 mmol/L (22.0-26.0); ABG OXYGEN SATURATION 96.5 % (94-97); ABG PCO2 (T) 44.2 mmHg (35.0-48.0); ABG PO2 (T) 76.6 mmHg (75.0-100.0); ALLEN'S TEST Modified; FHHb 3.5 % (0.0-5.0); FMetHb 0.3 % (0.0-1.5); FO2Hb 95.2 % (94-97); MODE prvc; PATIENT TEMPERATURE 36.2; PEEP 5 cm H2O; RESPIRATORY RATE 12 b/min; TIDAL VOLUME 475 mL; TOTAL HEMOGLOBIN 12.8 G/dl (14.0-17.9)
[2022-12-07 03:41] LABS: ALANINE AMINOTRANSFERASE 607 U/L (12-78); ALBUMIN 3.1 G/DL (3.4-5.0); ALBUMIN/GLOBULIN RATIO 0.9 (1.1-1.5); ALKALINE PHOSPHATASE 81 IU/L (46-116); ANION GAP 6 (8-16); ASPARTATE AMINO TRANSFERASE 787 U/L (10-37); BILIRUBIN,TOTAL 2.5 MG/DL (0.1-1.0); BLOOD UREA NITROGEN 19 MG/DL (7-18); BUN/CREATININE RATIO 13.5 (10.0-20.0); CALCIUM 8.8 MG/DL (8.5-10.1); CHLORIDE 105 MMOL/L (99-107); CREATININE 1.41 MG/DL (0.60-1.10); GLUCOSE 120 MG/DL (70-104); MAGNESIUM 1.9 MG/DL (1.5-2.4); PHOSPHORUS 3.6 MG/DL (2.3-4.5); SODIUM 141 MMOL/L (135-145); TOTAL CARBON DIOXIDE 29.7 MMOL/L (24-32); TOTAL PROTEIN 6.4 G/DL (6.4-8.2); eCRCL 47 ML/MIN; eGFR 52 ML/MIN
[2022-12-07 03:43] LABS: POTASSIUM 2.9 MMOL/L (3.5-5.1)
[2022-12-07] MEDS ORDERED: magnesium 2GM in 50ml NS 50 ML IV PRN (03:50)
[2022-12-07] MEDS ORDERED: magnesium 4gm in 100ml NS 100 ML IV PRN (03:50)
[2022-12-07] MEDS: potassium Cl 40MEQ/270ML bag 270 ML IV PRN ×2 (04:08→06:19)
[2022-12-07] MEDS ORDERED: magnesium 2GM in 50ml NS 50 ML IV ONE (07:00)
[2022-12-07] MEDS ORDERED: Potassium Cl inj 40 MEQ in normal saline 250ml IV soln 250 ML IV ONE (07:00)
[2022-12-07] MEDS ORDERED: Potassium Cl inj 20 MEQ in normal saline 250ml IV soln 250 ML IV ONE (07:05)
[2022-12-07] MEDS ORDERED: acetaZOLAMIDE IV 500mg inj IV ONE (07:05)
[2022-12-07] MEDS: CefTRIAXone/D5W-Rocephin 1gm 50 ML IV SCH (08:01)
[2022-12-07] MEDS: folic acid 1mg/0.2ml inj IV SCH (08:01)
[2022-12-07] MEDS: furosemide 40mg/4ml inj IV SCH ×2 (08:02→19:43)
[2022-12-07] MEDS: metoprolol tartrate 25mg tablet PO SCH ×2 (08:04→19:43)
[2022-12-07] MEDS: rifaximin 550mg tablet PO SCH ×2 (08:04→19:43)
[2022-12-07] MEDS: lactulose 20gm/30ml cup PO SCH ×3 (08:04→21:00)
[2022-12-07] MEDS: famotidine/PF 10 mg/ml inj IV SCH (08:08)
[2022-12-07] MEDS ORDERED: potassium Cl 20mEq/100mL bag 100 ML IV SCH (09:30)
[2022-12-07] MEDS: thiamine inj. 500 MG in normal saline 100ml IV soln 100 ML IV SCH ×3 (09:36→23:30)
[2022-12-07] MEDS: dexmedetomidine inj. 400 MCG in normal saline 100ml IV soln 96 ML IV SCH (13:35)
--- NOTE | 2022-12-07 18:30 | NUR ---
Patient in room ICU 2040. I have received report from Patrick MENCHACA and had the opportunity to ask questions and assume patient care.
[2022-12-08] VITALS (20 sets, daily range): BP systolic 94–157; BP diastolic 68–99; PULSE 73–128; RESP 12–18; TEMP 98.2–99.1; O2SAT 93–100
[2022-12-08 01:35] LABS: BASOPHILS # (AUTO) 0.1 X10'3 (0-0.2); EOSINOPHILS # (AUTO) 0.5 X10'3 (0-0.9); EOSINOPHILS % (AUTO) 6.7 % (0-6); HEMATOCRIT 38.2 % (42.0-52.0); HEMOGLOBIN 12.5 g/dl (14.0-17.9); LYMPHOCYTES % (AUTO) 12.9 % (21-51); MEAN CORPUSCULAR HEMOGLOBIN 31.9 PG (27.0-31.0); MEAN CORPUSCULAR HGB CONC 32.8 g/dL (33.0-36.5); MEAN CORPUSCULAR VOLUME 97.3 FL (78-98); MEAN PLATELET VOLUME 8.3 FL (7.4-10.4); MONOCYTES # (AUTO) 0.7 X10'3 (0-0.9); NEUTROPHILS # (AUTO) 5.1 X10'3 (1.8-7.7); NEUTROPHILS % (AUTO) 69.4 % (42-75); PLATELET COUNT 141 X10'3 (140-440); RED BLOOD COUNT 3.93 X10'6 (4.70-6.10); RED CELL DISTRIBUTION WIDTH 17.2 % (11.5-14.5); WHITE BLOOD COUNT 7.4 X10'3 (4.5-11.0)
[2022-12-08 01:47] LABS: ALANINE AMINOTRANSFERASE 529 U/L (12-78); ALBUMIN 3.4 G/DL (3.4-5.0); ALBUMIN/GLOBULIN RATIO 0.9 (1.1-1.5); ALKALINE PHOSPHATASE 92 IU/L (46-116); ANION GAP 6 (8-16); ASPARTATE AMINO TRANSFERASE 481 U/L (10-37); BILIRUBIN,TOTAL 2.6 MG/DL (0.1-1.0); BLOOD UREA NITROGEN 22 MG/DL (7-18); BUN/CREATININE RATIO 15.9 (10.0-20.0); CHLORIDE 106 MMOL/L (99-107); CREATININE 1.38 MG/DL (0.60-1.10); GLUCOSE 103 MG/DL (70-104); MAGNESIUM 2.1 MG/DL (1.5-2.4); PHOSPHORUS 4.1 MG/DL (2.3-4.5); POTASSIUM 3.7 MMOL/L (3.5-5.1); SODIUM 142 MMOL/L (135-145); TOTAL CARBON DIOXIDE 30.4 MMOL/L (24-32); TOTAL PROTEIN 7.3 G/DL (6.4-8.2); eCRCL 48 ML/MIN; eGFR 53 ML/MIN
[2022-12-08] MEDS: dexmedetomidine inj. 400 MCG in normal saline 100ml IV soln 96 ML IV SCH (02:40)
--- NOTE | 2022-12-08 06:09 | NUR ---
Problems reprioritized. Patient report given, questions answered & plan of care reviewed with Patrick MENCHACA.
[2022-12-08] MEDS: famotidine/PF 10 mg/ml inj IV SCH (07:39)
[2022-12-08] MEDS: furosemide 40mg/4ml inj IV SCH (07:39)
[2022-12-08] MEDS: CefTRIAXone/D5W-Rocephin 1gm 50 ML IV SCH (07:40)
[2022-12-08] MEDS: thiamine inj. 500 MG in normal saline 100ml IV soln 100 ML IV SCH ×3 (07:40→23:37)
[2022-12-08] MEDS: folic acid 1mg/0.2ml inj IV SCH (07:42)
[2022-12-08] MEDS: rifaximin 550mg tablet PO SCH (10:55)
[2022-12-08] MEDS: metoprolol tartrate 25mg tablet PO SCH (10:55)
[2022-12-08] MEDS: heparin, porcine 5000 units/ml vial SQ SCH ×3 (10:56→23:38)
[2022-12-08] MEDS ORDERED: lactulose 20gm/30ml cup PO SCH (12:00)
--- NOTE | 2022-12-08 12:16 | NUR ---
TF consult: Pt extubated on 12/07 per EMR. Per MD during CCR pt remains NPO and plan for corpak today. Initiate TF via corpak per MD; see recs below. Pt dieresis last given Lasix today 12/08 and noted cumulative -16.6L fluid balance this admit per EMR. LBM on 12/07 per EMR. Will continue to monitor and make recommendations as appropriate. Recommendations: 1) Continuous TF via Corpak per MD of Jevity1.2 at 70ml/hr goal rate. Begin at 30ml/hr and advance by 20ml Q8H as tolerated to goal rate. Once at goal to provide 1680ml volume/day, 2016 kcals, 93g of protein, and 1356ml of water. 2)additional water flush per physician given compromised liver function; monitor serum Na 3) Prealbumin q Thursday/ 4) Daily scaled weights 5) Routine Thiamine, Folic acid, and MVI d/t EtOH hx 6) Routine bowel care 7) Advance to heart healthy diet as medically indicated appropriate; monitor need for ONS/additional protein once PO resumed Addendum: 12/08/22 at [address] Amended: Links added.
[2022-12-08] MEDS: dextrose 5%-1/2 normal saline 1,000 ML IV SCH ×2 (12:39→23:40)
[2022-12-08] MEDS ORDERED: magnesium hydroxide 30ml (MOM) UD suspension CORPAK PRN (14:23)
--- NOTE | 2022-12-08 16:17 | NUR ---
Patient in room ICU 2040. I have received report from Patrick EEO OFFICER and had the opportunity to ask questions and assume patient care.
[2022-12-08] MEDS: lactulose 20gm/30ml cup CORPAK SCH ×3 (16:29→23:36)
--- NOTE | 2022-12-08 16:45 | NUR ---
Report called to BERNARDA Tolliver. Pt transferred to room 1559c
--- NOTE | 2022-12-08 17:50 | NUR ---
Pt pulled out his Corpak. Hands were restrained but he lowered his head to his hands. No damage seen on pt.
--- NOTE | 2022-12-08 18:45 | NUR ---
Problems reprioritized. Patient report given, questions answered & plan of care reviewed with Annelise MENCHACA.
--- NOTE | 2022-12-08 19:41 | NUR ---
COREPACK WAS PLACED IN LEFT NOSTRIL. KUB OF ABDOMEN ORDERED. DR BELL LOOKED AT XRAY AND SAID PLACEMENT WAS CORRECT AND OK TO START TUBE FEED AGAIN.
[2022-12-08] MEDS: metoprolol tartrate 25mg tablet CORPAK SCH (20:00)
[2022-12-08] MEDS: LORazepam 2 mg/ml vial IV PRN (20:13)
--- NOTE | 2022-12-08 20:16 | NUR ---
PT WAS CUSSING AND KICKING AND COUGHED UP HIS COREPACK. AWAITING RESULTS OF NEW X-RAY AFTER RE-PLACEMENT OF COREPACK.
--- NOTE | 2022-12-08 20:20 | NUR ---
UNABLE TO GIVE PATIENT HIS 2000 MEDS DUE TO COMBATIVENESS AND AGITATION.
--- NOTE | 2022-12-08 20:22 | NUR ---
DR BELL REVIEWED THE LAST XRAY TAKEN AT 2009 AND SAID PLACEMENT WAS CORRECT AND WE CAN USE THE CORE PACK. HE ALSO ORDERED A SITTER AND SAID TO USE ATIVAN FOR HIM FOR AGITATION AND COMBATIVENESS.
--- NOTE | 2022-12-08 20:34 | NUR ---
RE-STARTED PATIENT'S TUBE FEEDING AT 2029 AT 30 ML /HR
[2022-12-08] MEDS: rifaximin 550mg tablet CORPAK SCH (23:36)
[2022-12-09] VITALS (7 sets, daily range): BP systolic 139–164; BP diastolic 92–112; PULSE 100–135; RESP 14–24; TEMP 97.8–98.7; O2SAT 95–98
[2022-12-09] MEDS: morphine 4 MG/ML inj SYRINge IV PRN (01:31)
--- NOTE | 2022-12-09 02:40 | NUR ---
PT TUBE FEEDING RATE INCREASED TO 60 ML/HR. Addendum: 12/09/22 at 0242 by Annelise Noel RN 50 ML/HR NOT60 ML/HR
[2022-12-09] MEDS: lactulose 20gm/30ml cup CORPAK SCH ×5 (04:01→22:07)
[2022-12-09] MEDS: dextrose 5%-1/2 normal saline 1,000 ML IV SCH ×2 (04:13→17:09)
--- NOTE | 2022-12-09 06:20 | NUR ---
Problems reprioritized. Patient report given, questions answered & plan of care reviewed with BERNARDA DICKINSON.
--- NOTE | 2022-12-09 06:24 | NUR ---
Patient in room PCU 3028. I have received report from francisca martinez and had the opportunity to ask questions and assume patient care.
[2022-12-09] MEDS: CefTRIAXone/D5W-Rocephin 1gm 50 ML IV SCH (09:22)
[2022-12-09] MEDS: famotidine/PF 10 mg/ml inj IV SCH (09:22)
[2022-12-09] MEDS: heparin, porcine 5000 units/ml vial SQ SCH ×3 (09:35→23:44)
[2022-12-09] MEDS: rifaximin 550mg tablet CORPAK SCH ×2 (09:54→22:06)
[2022-12-09] MEDS: metoprolol tartrate 25mg tablet CORPAK SCH ×2 (09:54→22:09)
[2022-12-09] MEDS: thiamine inj. 500 MG in normal saline 100ml IV soln 100 ML IV SCH ×2 (10:01→17:09)
--- NOTE | 2022-12-09 11:25 | NUR ---
increased tube feed to goal rate of 70.
[2022-12-09] MEDS: folic acid 1mg/0.2ml inj IV SCH (13:47)
[2022-12-09 14:03] LABS: BASOPHILS # (AUTO) 0.1 X10'3 (0-0.2); BASOPHILS % (AUTO) 0.9 % (0-1); EOSINOPHILS # (AUTO) 0.5 X10'3 (0-0.9); EOSINOPHILS % (AUTO) 6.7 % (0-6); HEMATOCRIT 41.5 % (42.0-52.0); HEMOGLOBIN 13.3 g/dl (14.0-17.9); LYMPHOCYTES # (AUTO) 0.8 X10'3 (1.1-4.8); LYMPHOCYTES % (AUTO) 11.5 % (21-51); MEAN CORPUSCULAR HEMOGLOBIN 31.2 PG (27.0-31.0); MEAN CORPUSCULAR VOLUME 97.6 FL (78-98); MEAN PLATELET VOLUME 8.4 FL (7.4-10.4); MONOCYTES # (AUTO) 0.8 X10'3 (0-0.9); MONOCYTES % (AUTO) 11.2 % (2-12); NEUTROPHILS # (AUTO) 4.8 X10'3 (1.8-7.7); NEUTROPHILS % (AUTO) 69.7 % (42-75); PLATELET COUNT 139 X10'3 (140-440); RED BLOOD COUNT 4.25 X10'6 (4.70-6.10); RED CELL DISTRIBUTION WIDTH 17.4 % (11.5-14.5); WHITE BLOOD COUNT 6.8 X10'3 (4.5-11.0)
[2022-12-09 14:10] LABS: ALANINE AMINOTRANSFERASE 314 U/L (12-78); ALBUMIN 3.3 G/DL (3.4-5.0); ALBUMIN/GLOBULIN RATIO 0.8 (1.1-1.5); ALKALINE PHOSPHATASE 98 IU/L (46-116); ANION GAP 9 (8-16); ASPARTATE AMINO TRANSFERASE 167 U/L (10-37); BILIRUBIN,TOTAL 2.5 MG/DL (0.1-1.0); BLOOD UREA NITROGEN 23 MG/DL (7-18); CALCIUM 8.9 MG/DL (8.5-10.1); CHLORIDE 107 MMOL/L (99-107); CREATININE 1.28 MG/DL (0.60-1.10); GLUCOSE 153 MG/DL (70-104); MAGNESIUM 2.2 MG/DL (1.5-2.4); PHOSPHORUS 4.2 MG/DL (2.3-4.5); POTASSIUM 3.2 MMOL/L (3.5-5.1); PREALBUMIN 11.7 MG/DL (19-36); SODIUM 142 MMOL/L (135-145); TOTAL CARBON DIOXIDE 25.7 MMOL/L (24-32); TOTAL PROTEIN 7.2 G/DL (6.4-8.2); eCRCL 52 ML/MIN; eGFR 58 ML/MIN
--- NOTE | 2022-12-09 16:49 | NUR ---
PAGED DR TRAN RE: PAGER ID: [phone] MESSAGE: SERENE CALL. BP 165/96 HR 105. NO PRN BP MEDS ORDERED. TEENA 1849 TELE
--- NOTE | 2022-12-09 17:25 | NUR ---
PAGED DR TRAN RE: PAGER ID: [phone] MESSAGE: SERENE CALL. NEED RENEWEL ORDER FOR RESTRAINTS. THANKS TEENA [phone]
--- NOTE | 2022-12-09 18:28 | NUR ---
Problems reprioritized. Patient report given, questions answered & plan of care reviewed with francisca martinez.
[2022-12-09] MEDS: LORazepam 2 mg/ml vial IV PRN ×3 (19:28→22:32)
[2022-12-09] MEDS: hydrALAZINE 20mg/ml inj. IV SCH (20:00)
[2022-12-09] MEDS: diazepam inj 5 MG/ML inj. IV PRN (23:42)
[2022-12-10] VITALS (11 sets, daily range): BP systolic 107–159; BP diastolic 63–111; PULSE 100–136; RESP 19–24; TEMP 97.1–98.2; O2SAT 98–100
--- NOTE | 2022-12-10 | NUR ---
PT RECEIVED HIS 1999 LACTULOSE LATE SINCE HE HAD PULLED OUT HIS CORPAK AND WE HAD TO WAIT UNTIL PROPER PLACEMENT WAS VERIFIED SO THE 0000 DOSE WAS NOT GIVEN.
[2022-12-10] MEDS: thiamine inj. 500 MG in normal saline 100ml IV soln 100 ML IV SCH ×2 (00:19→08:19)
[2022-12-10] MEDS: LORazepam 2 mg/ml vial IV PRN (01:15)
[2022-12-10] MEDS ORDERED: potassium Cl 40MEQ/1/2NS 520ml 520 ML IV PRN (01:20)
[2022-12-10] MEDS: diazepam inj 5 MG/ML inj. IV PRN ×2 (01:55→11:05)
--- NOTE | 2022-12-10 01:56 | NUR ---
PT THRASHING AROUND IN BED TRYING TO PULL HIS LINES. VERY TENSE AND TRYING TO GET UP AND OUT OF BED.
[2022-12-10] MEDS: hydrALAZINE 20mg/ml inj. IV SCH ×4 (02:00→20:00)
[2022-12-10] MEDS: morphine 2 MG/ML inj. syringe IV PRN ×2 (03:35→08:21)
[2022-12-10] MEDS: lactulose 20gm/30ml cup CORPAK SCH ×5 (03:40→16:00)
--- NOTE | 2022-12-10 05:05 | NUR ---
LAST TWO MEDICATIONS THE ATIVAN AND THE MORPHINE DID NOT SAVE WHEN SCANNED. HAD TO DO AN UNSCHEDULED ADMINISTRATION FOR BOTH. PT APPEARS TO BE RESTING COMFORTABLY NOW AFTER RECEIVING THE MORPHINE. THE ATIVAN ONLY WORKED BRIEFLY LAST NIGHT. PT WAS TRYING TO PULL LINES AND WAS CUSSING AT HIS SITTER AND WIGGLING ALL AROUND IN HIS BED TRYING TO MANEUVER HIMSELF TO PULL OUT HIS CORPAK AND VASQUEZ CATHETER.
--- NOTE | 2022-12-10 06:53 | NUR ---
Problems reprioritized. Patient report given, questions answered & plan of care reviewed with BERNARDA CRAIG.
[2022-12-10] MEDS: dextrose 5%-1/2 normal saline 1,000 ML IV SCH (07:05)
[2022-12-10 07:29] LABS: BASOPHILS # (AUTO) 0.1 X10'3 (0-0.2); BASOPHILS % (AUTO) 0.9 % (0-1); EOSINOPHILS # (AUTO) 0.4 X10'3 (0-0.9); EOSINOPHILS % (AUTO) 4.6 % (0-6); HEMATOCRIT 41.3 % (42.0-52.0); HEMOGLOBIN 13.3 g/dl (14.0-17.9); LYMPHOCYTES # (AUTO) 1.3 X10'3 (1.1-4.8); LYMPHOCYTES % (AUTO) 13.4 % (21-51); MEAN CORPUSCULAR HEMOGLOBIN 31.5 PG (27.0-31.0); MEAN CORPUSCULAR HGB CONC 32.3 g/dL (33.0-36.5); MEAN CORPUSCULAR VOLUME 97.7 FL (78-98); MONOCYTES # (AUTO) 1.4 X10'3 (0-0.9); MONOCYTES % (AUTO) 15.2 % (2-12); NEUTROPHILS # (AUTO) 6.2 X10'3 (1.8-7.7); NEUTROPHILS % (AUTO) 65.9 % (42-75); PLATELET COUNT 146 X10'3 (140-440); RED BLOOD COUNT 4.23 X10'6 (4.70-6.10); RED CELL DISTRIBUTION WIDTH 17.1 % (11.5-14.5); WHITE BLOOD COUNT 9.4 X10'3 (4.5-11.0)
[2022-12-10 07:58] LABS: ANISOCYTOSIS 1+; NUCLEATED RED BLOOD CELLS 1 /100WBC (0-0); PLATELET ESTIMATE NORMAL; TOTAL CELLS COUNTED 100
[2022-12-10 08:09] LABS: ALANINE AMINOTRANSFERASE 288 U/L (12-78); ALBUMIN 3.4 G/DL (3.4-5.0); ALBUMIN/GLOBULIN RATIO 0.8 (1.1-1.5); ALKALINE PHOSPHATASE 92 IU/L (46-116); ANION GAP 9 (8-16); ASPARTATE AMINO TRANSFERASE 119 U/L (10-37); BILIRUBIN,TOTAL 2.9 MG/DL (0.1-1.0); BLOOD UREA NITROGEN 20 MG/DL (7-18); BUN/CREATININE RATIO 17.5 (10.0-20.0); CALCIUM 9.4 MG/DL (8.5-10.1); CHLORIDE 107 MMOL/L (99-107); CREATININE 1.14 MG/DL (0.60-1.10); GLUCOSE 135 MG/DL (70-104); MAGNESIUM 2.4 MG/DL (1.5-2.4); POTASSIUM 3.6 MMOL/L (3.5-5.1); SODIUM 142 MMOL/L (135-145); TOTAL CARBON DIOXIDE 25.8 MMOL/L (24-32); TOTAL PROTEIN 7.6 G/DL (6.4-8.2); eCRCL 58 ML/MIN; eGFR 66 ML/MIN
[2022-12-10] MEDS: rifaximin 550mg tablet CORPAK SCH ×2 (08:18→20:00)
[2022-12-10] MEDS: metoprolol tartrate 25mg tablet CORPAK SCH ×2 (08:18→20:00)
[2022-12-10] MEDS: folic acid 1mg/0.2ml inj IV SCH (08:18)
[2022-12-10] MEDS: famotidine/PF 10 mg/ml inj IV SCH (08:19)
[2022-12-10] MEDS: heparin, porcine 5000 units/ml vial SQ SCH ×2 (08:19→16:52)
--- NOTE | 2022-12-10 12:01 | NUR ---
PRESSURE ULCER EDUCATION: DEFINITION: A pressure ulcer is an area of skin that breaks down when you stay in one position too long. The constant pressure against the skin reduces the blood flow to that area and the affected tissue dies. CAUSES: "Being bedridden or in a wheelchair "Fragile skin "Having a chronic condition, such as diabetes or vascular disease "Inability to move certain parts of your body without assistance "Older age "Incontinence of urine or stool SYMPTOMS: "A reddened area that DOES NOT turn white when pressed on - this can be the beginning of a pressure ulcer "A blister, deep sore or a crater - these can be advanced pressure ulcers FIRST AID: "Relieve the pressure on this area "Keep the area clean and dry "Call your primary doctor if you see any of the above symptoms "DO NOT massage the area "DO NOT use a donut shaped or ring shaped pillow- these actually interfere with the blood flow and cause complications PREVENTION: "Check for pressure ulcers everyday "Change position at least every two hours to relieve pressure "Use items that help relieve pressure- pillows, sheepskin, foam padding, and powders. "Keep skin clean and dry "Eat healthy well balanced meals "Exercise daily IF YOU SEE ANY OF THESE SYMPTOMS WHILE IN THE HOSPITAL - TELL YOUR NURSE IMMEDIATELY. IF YOU SEE ANY OF THESE SYMPTOMS WHILE AT HOME OR HAVE ANY QUESTIONS OR CONCERNS ABOUT PRESSURE ULCERS - CALL YOUR PRIMARY DOCTOR IMMEDIATELY. Addendum: 12/10/22 at 1202 by Emilia Ernandez LVN Amended: Links added.
[2022-12-10] MEDS: morphine 4 MG/ML inj SYRINge IV PRN ×2 (12:32→20:12)
--- NOTE | 2022-12-10 12:50 | NUR ---
Pt smells of emesis. Coffee ground like TF residual aspirated from corepak 150 mLs. MD aware. MD stopped TF. Pt now NPO. Protonix gtt continuous initiated.
[2022-12-10] MEDS ORDERED: thiamine 100mg tablet CORPAK SCH (13:00)
[2022-12-10 14:29] LABS: HEMATOCRIT 43.2 % (42.0-52.0); HEMOGLOBIN 13.9 g/dl (14.0-17.9); MEAN CORPUSCULAR HEMOGLOBIN 31.6 PG (27.0-31.0); MEAN CORPUSCULAR HGB CONC 32.3 g/dL (33.0-36.5); MEAN CORPUSCULAR VOLUME 98.1 FL (78-98); MEAN PLATELET VOLUME 9.3 FL (7.4-10.4); PLATELET COUNT 133 X10'3 (140-440); RED CELL DISTRIBUTION WIDTH 17.2 % (11.5-14.5); WHITE BLOOD COUNT 10.7 X10'3 (4.5-11.0)
[2022-12-10] MEDS: pantoprazole 40MG/NS 100ML BAG 100 ML IV SCH ×2 (16:52→21:35)
--- NOTE | 2022-12-10 18:20 | NUR ---
Problems reprioritized. Patient report given, questions answered & plan of care reviewed with BERNARDA Castelan.
--- NOTE | 2022-12-10 22:49 | NUR ---
WAS TOLD VERBALLY BY DAY NURSE WE ARE NOT USING THE CORPAK FOR THIS PATIENT AND THAT DR TRAN WANTED THE LACTULOSE ADMINISTERED RECTALLY. THERE WAS NO ORDER FOR THIS CALLED DR TRAN WHO TOLD ME TO CALL THE NIGHT SPOKE WITH DR BELL AND HE ORDERED THE RECTAL LACTULOSE AND THE IV THIAMINE SINCE PT IS NPO. NO NEW ORDERS AT THIS TIME.
--- NOTE | 2022-12-10 23:24 | NUR ---
Student documentation: I have reviewed interventions, assessments performed and documented by Neha Yo [facility].
[2022-12-11] VITALS (8 sets, daily range): BP systolic 117–143; BP diastolic 75–95; PULSE 89–130; RESP 11–20; TEMP 98–98.4; O2SAT 96–100
[2022-12-11] MEDS ORDERED: LACTULOSE RC SCH ×2
[2022-12-11] MEDS ORDERED: SODIUM CL IRRIG RC SCH ×2
[2022-12-11] MEDS: heparin, porcine 5000 units/ml vial SQ SCH ×3 (00:52→16:00)
[2022-12-11] MEDS: dextrose 5%-1/2 normal saline 1,000 ML IV SCH (00:56)
[2022-12-11] MEDS: pantoprazole 40MG/NS 100ML BAG 100 ML IV SCH ×5 (01:33→17:06)
[2022-12-11] MEDS: hydrALAZINE 20mg/ml inj. IV SCH ×3 (02:00→14:00)
[2022-12-11] MEDS: morphine 4 MG/ML inj SYRINge IV PRN (02:35)
[2022-12-11] MEDS: LACTULOSE RC SCH ×3 (02:53→12:00)
[2022-12-11] MEDS: SODIUM CL IRRIG RC SCH ×3 (02:53→12:00)
--- NOTE | 2022-12-11 06:30 | NUR ---
Patient in room PCU 3028. I have received report from BERNARDA Castelan and had the opportunity to ask questions and assume patient care.
--- NOTE | 2022-12-11 06:35 | NUR ---
Problems reprioritized. Patient report given, questions answered & plan of care reviewed with BERNARDA CRAIG.
[2022-12-11] MEDS: metoprolol tartrate 25mg tablet CORPAK SCH ×2 (07:06→20:00)
[2022-12-11] MEDS: rifaximin 550mg tablet CORPAK SCH ×2 (07:07→20:00)
--- NOTE | 2022-12-11 08:09 | NUR ---
PAGER ID: [phone] MESSAGE: Good morning. I am concerned about our pt in [facility]. His HR is in the 130s sustaining. He is NPO d/t coffee ground emesis yesterday. I need his Metoprolol changed to IV please. I would love to round on this pt too. BERNARDA Escobar [phone]
[2022-12-11] MEDS ORDERED: diltiazem 5mg/ml 5ml inj. IV ONE (08:20)
--- NOTE | 2022-12-11 08:33 | NUR ---
page to respiratory: [id number] eloy. Dr Kat ordered ABG for this morning. [email or web address]
[2022-12-11 09:19] LABS: BASOPHILS # (AUTO) 0.1 X10'3 (0-0.2); BASOPHILS % (AUTO) 0.9 % (0-1); EOSINOPHILS # (AUTO) 0.3 X10'3 (0-0.9); EOSINOPHILS % (AUTO) 3.1 % (0-6); HEMATOCRIT 39.2 % (42.0-52.0); HEMOGLOBIN 12.7 g/dl (14.0-17.9); LYMPHOCYTES # (AUTO) 1.1 X10'3 (1.1-4.8); LYMPHOCYTES % (AUTO) 12.2 % (21-51); MEAN CORPUSCULAR HEMOGLOBIN 31.6 PG (27.0-31.0); MEAN CORPUSCULAR HGB CONC 32.3 g/dL (33.0-36.5); MEAN CORPUSCULAR VOLUME 97.8 FL (78-98); MEAN PLATELET VOLUME 9.3 FL (7.4-10.4); MONOCYTES # (AUTO) 0.8 X10'3 (0-0.9); MONOCYTES % (AUTO) 9.8 % (2-12); NEUTROPHILS # (AUTO) 6.4 X10'3 (1.8-7.7); PLATELET COUNT 125 X10'3 (140-440); RED BLOOD COUNT 4.01 X10'6 (4.70-6.10); RED CELL DISTRIBUTION WIDTH 16.7 % (11.5-14.5); WHITE BLOOD COUNT 8.6 X10'3 (4.5-11.0)
[2022-12-11 09:32] LABS: ALANINE AMINOTRANSFERASE 174 U/L (12-78); ALBUMIN 2.8 G/DL (3.4-5.0); ALBUMIN/GLOBULIN RATIO 0.7 (1.1-1.5); ALKALINE PHOSPHATASE 72 IU/L (46-116); ANION GAP 4 (8-16); ASPARTATE AMINO TRANSFERASE 55 U/L (10-37); BILIRUBIN,TOTAL 3.8 MG/DL (0.1-1.0); BLOOD UREA NITROGEN 21 MG/DL (7-18); BUN/CREATININE RATIO 23.3 (10.0-20.0); CALCIUM 8.7 MG/DL (8.5-10.1); CHLORIDE 109 MMOL/L (99-107); GLUCOSE 97 MG/DL (70-104); SODIUM 137 MMOL/L (135-145); TOTAL CARBON DIOXIDE 23.8 MMOL/L (24-32); TOTAL PROTEIN 6.6 G/DL (6.4-8.2); eCRCL 74 ML/MIN; eGFR 87 ML/MIN
[2022-12-11 09:34] LABS: ABG HCO3 19.8 mmol/L (22.0-26.0); ABG OXYGEN SATURATION 98.6 % (94-97); ABG PCO2 (T) 32.1 mmHg (35.0-48.0); ABG PH (T) 7.408 (7.340-7.440); ABG PO2 (T) 107.7 mmHg (75.0-100.0); ALLEN'S TEST POSITIVE; FCOHb 1.2 % (0.0-3.9); FHHb 1.4 % (0.0-5.0); FLOW 2 L/min; FMetHb 0.3 % (0.0-1.5); FO2Hb 97.1 % (94-97); MODE NC; PATIENT TEMPERATURE 36.8; TOTAL HEMOGLOBIN 12.9 G/dl (14.0-17.9)
[2022-12-11 09:35] LABS: LACTIC SEPSIS 1.2 MMOL/L (0.4-2.0)
[2022-12-11] MEDS ORDERED: naloxone 0.4 mg/ml inj IV ONE ×2 (10:00→12:15)
[2022-12-11] MEDS: famotidine/PF 10 mg/ml inj IV SCH (10:56)
--- NOTE | 2022-12-11 11:50 | NUR ---
F/u 12/11: Per RN note on 12/10 pt pulled out his Corpak and attempting to pull his other lines then later that day documented coffee ground like TF residual aspirated from Corpak of 150ml thus MD stopped TF. Pt is currently NPO. Page MD regarding resuming TF. Per EMR pt has been restrained for his safety and appears agitated and remains AOx1. Pt presents with a low keira score of 11 per EMR. Pt seen by wound care on 12/10. Per WOC note "bilateral LE intact discoloration however no noted skin breakdown". LBM on 12/10 and now receiving lactulose rectally per EMR. Will continue to monitor and make recommendations as appropriate. Recommendations: 1) If TF resumed continuous TF via Corpak per MD of Jevity1.2 at 70ml/hr goal rate.Begin at 30ml/hr and advance by 20ml Q8H as tolerated to goal rate. Once at goal to provide 1680ml volume/day, 2016 kcals, 93g of protein, and 1356ml of water. 2)IF TF additional water flush per physician given compromised liver function; monitor serum Na 3) IF TF Prealbumin q Thursday/ 4) IF TF Daily scaled weights 5) Routine Thiamine, Folic acid, and MVI d/t EtOH hx 6) Routine bowel care 7) IF no TF then MODEL MAKER consult for diet advancement given A0 x 1 7) Advance to heart healthy diet as medically indicated appropriate; monitor need for ONS/additional protein once PO resumed Addendum: 12/11/22 at [address] Amended: Links added.
[2022-12-11] MEDS: thiamine 100mg/ml 2ml inj. IV SCH ×3 (12:54→22:36)
[2022-12-11] MEDS: folic acid 1mg/0.2ml inj IV SCH (12:54)
--- NOTE | 2022-12-11 15:14 | NUR ---
PAGER ID: [phone] MESSAGE: Pt Mike in 7179W has hydralazine due, but I wanted to see if you would like me to administer that or if we should give an additional dose of Diltiazem? His HR is 120's again. BERNARDA Escobar [id number]
--- NOTE | 2022-12-11 15:26 | NUR ---
PAGER ID: [phone] MESSAGE: Also, on [place] would you like me to order the KUB at bedside? We spoke about it earlier, but we had a lot going on at the time. CT cannot take the pt in restraints. Thanks, Luz [phone]
--- NOTE | 2022-12-11 16:06 | NUR ---
PAGER ID: [phone] MESSAGE: I called the pharmacy and D51/2 NS is not compatible with protonix gtt and Dobutamine needs it's own line. Can we change his IVF to d5NS at 75 an hr please? Thanks, Luz [phone]
[2022-12-11] MEDS: DOBUTamine-DoBUTrex 500mg/D5W 250 ML IV SCH (16:25)
--- NOTE | 2022-12-11 16:42 | NUR ---
PAGED DR. WOODS FOR PRIMARY RN REGARDING KUB RESULTS. PAGER ID: [phone] MESSAGE: [id number]. SERENE CALL. ERLINB HAS RESULTED. PLEASE ADVISE. THANK YOU. NATALIE MENCHACA [phone] Addendum: 12/11/22 at 1700 by Natalie Lawrence RN DR. WOODS CAME TO THE FLOOR AND STATED TO DC THE ROB ESQUEDA.
[2022-12-11] MEDS: dextrose 5%-normal saline 1,000 ML IV SCH (17:06)
--- NOTE | 2022-12-11 18:45 | NUR ---
Problems reprioritized. Patient report given, questions answered & plan of care reviewed with BERNARDA Montiel.
[2022-12-11 22:00] LABS: ALBUMIN 2.8 G/DL (3.4-5.0); ANION GAP 7 (8-16); BLOOD UREA NITROGEN 16 MG/DL (7-18); BUN/CREATININE RATIO 19.3 (10.0-20.0); CALCIUM 8.6 MG/DL (8.5-10.1); CHLORIDE 109 MMOL/L (99-107); CREATININE 0.83 MG/DL (0.60-1.10); GLUCOSE 107 MG/DL (70-104); POTASSIUM 3.7 MMOL/L (3.5-5.1); PRO BRAIN NATRIURETIC PEPTIDE 5704 PG/ML (0-125); SODIUM 140 MMOL/L (135-145); TOTAL CARBON DIOXIDE 24.3 MMOL/L (24-32); eCRCL 80 ML/MIN; eGFR > 90 ML/MIN
[2022-12-12] VITALS (9 sets, daily range): BP systolic 129–141; BP diastolic 86–99; PULSE 80–135; RESP 14–21; TEMP 97.8–98.2; O2SAT 96–100
[2022-12-12] MEDS: pantoprazole 40MG/NS 100ML BAG 100 ML IV SCH ×5 (02:46→21:10)
[2022-12-12] MEDS: dextrose 5%-normal saline 1,000 ML IV SCH (05:04)
[2022-12-12 07:50] LABS: BASOPHILS # (AUTO) 0.1 X10'3 (0-0.2); EOSINOPHILS # (AUTO) 0.3 X10'3 (0-0.9); EOSINOPHILS % (AUTO) 4.7 % (0-6); HEMATOCRIT 35.6 % (42.0-52.0); HEMOGLOBIN 11.5 g/dl (14.0-17.9); LYMPHOCYTES # (AUTO) 0.6 X10'3 (1.1-4.8); LYMPHOCYTES % (AUTO) 11.1 % (21-51); MEAN CORPUSCULAR HEMOGLOBIN 31.4 PG (27.0-31.0); MEAN CORPUSCULAR HGB CONC 32.3 g/dL (33.0-36.5); MEAN CORPUSCULAR VOLUME 97.3 FL (78-98); MEAN PLATELET VOLUME 9.3 FL (7.4-10.4); MONOCYTES # (AUTO) 0.5 X10'3 (0-0.9); NEUTROPHILS # (AUTO) 3.9 X10'3 (1.8-7.7); NEUTROPHILS % (AUTO) 73.2 % (42-75); PLATELET COUNT 128 X10'3 (140-440); RED BLOOD COUNT 3.66 X10'6 (4.70-6.10); RED CELL DISTRIBUTION WIDTH 16.4 % (11.5-14.5); WHITE BLOOD COUNT 5.3 X10'3 (4.5-11.0)
[2022-12-12 08:14] LABS: ALANINE AMINOTRANSFERASE 127 U/L (12-78); ALBUMIN 2.9 G/DL (3.4-5.0); ALBUMIN/GLOBULIN RATIO 0.8 (1.1-1.5); ALKALINE PHOSPHATASE 72 IU/L (46-116); ANION GAP 8 (8-16); ASPARTATE AMINO TRANSFERASE 44 U/L (10-37); BILIRUBIN,TOTAL 3.7 MG/DL (0.1-1.0); BLOOD UREA NITROGEN 14 MG/DL (7-18); BUN/CREATININE RATIO 17.5 (10.0-20.0); CALCIUM 8.6 MG/DL (8.5-10.1); CHLORIDE 110 MMOL/L (99-107); GLUCOSE 106 MG/DL (70-104); POTASSIUM 3.6 MMOL/L (3.5-5.1); SODIUM 141 MMOL/L (135-145); TOTAL CARBON DIOXIDE 22.8 MMOL/L (24-32); TOTAL PROTEIN 6.6 G/DL (6.4-8.2); eCRCL 83 ML/MIN; eGFR > 90 ML/MIN
[2022-12-12] MEDS: dextrose 5%-1/2 normal saline 1,000 ML IV SCH ×2 (09:25→22:25)
[2022-12-12] MEDS: famotidine/PF 10 mg/ml inj IV SCH (09:33)
[2022-12-12] MEDS: thiamine 100mg/ml 2ml inj. IV SCH ×3 (09:35→21:10)
--- NOTE | 2022-12-12 12:00 | NUR ---
Core Pack removed under observation and orders of Dr. Kat. Tip is removed intact.
[2022-12-12] MEDS: metoprolol tartrate 25mg tablet CORPAK SCH ×2 (14:27→21:09)
[2022-12-12] MEDS: folic acid 1mg/0.2ml inj IV SCH (14:28)
[2022-12-12] MEDS: rifaximin 550mg tablet CORPAK SCH ×2 (14:51→21:08)
[2022-12-13] VITALS (10 sets, daily range): BP systolic 118–159; BP diastolic 65–106; PULSE 75–100; RESP 14–25; TEMP 97.4–98.8; O2SAT 97–100
[2022-12-13 07:50] LABS: BASOPHILS # (AUTO) 0.1 X10'3 (0-0.2); BASOPHILS % (AUTO) 1.3 % (0-1); EOSINOPHILS # (AUTO) 0.4 X10'3 (0-0.9); EOSINOPHILS % (AUTO) 6.5 % (0-6); HEMATOCRIT 34.6 % (42.0-52.0); HEMOGLOBIN 11.4 g/dl (14.0-17.9); LYMPHOCYTES # (AUTO) 0.8 X10'3 (1.1-4.8); LYMPHOCYTES % (AUTO) 12.2 % (21-51); MEAN CORPUSCULAR HEMOGLOBIN 31.9 PG (27.0-31.0); MEAN CORPUSCULAR VOLUME 96.6 FL (78-98); MEAN PLATELET VOLUME 9.3 FL (7.4-10.4); MONOCYTES # (AUTO) 0.8 X10'3 (0-0.9); MONOCYTES % (AUTO) 12.6 % (2-12); NEUTROPHILS # (AUTO) 4.4 X10'3 (1.8-7.7); NEUTROPHILS % (AUTO) 67.4 % (42-75); PLATELET COUNT 156 X10'3 (140-440); RED BLOOD COUNT 3.58 X10'6 (4.70-6.10); RED CELL DISTRIBUTION WIDTH 15.9 % (11.5-14.5); WHITE BLOOD COUNT 6.5 X10'3 (4.5-11.0)
[2022-12-13 08:33] LABS: ALANINE AMINOTRANSFERASE 96 U/L (12-78); ALBUMIN 2.7 G/DL (3.4-5.0); ALBUMIN/GLOBULIN RATIO 0.7 (1.1-1.5); ALKALINE PHOSPHATASE 70 IU/L (46-116); ANION GAP 8 (8-16); ASPARTATE AMINO TRANSFERASE 32 U/L (10-37); BILIRUBIN,TOTAL 2.9 MG/DL (0.1-1.0); BLOOD UREA NITROGEN 16 MG/DL (7-18); BUN/CREATININE RATIO 19.8 (10.0-20.0); CALCIUM 8.8 MG/DL (8.5-10.1); CHLORIDE 109 MMOL/L (99-107); CREATININE 0.81 MG/DL (0.60-1.10); GLUCOSE 101 MG/DL (70-104); POTASSIUM 3.5 MMOL/L (3.5-5.1); SODIUM 140 MMOL/L (135-145); TOTAL CARBON DIOXIDE 22.7 MMOL/L (24-32); TOTAL PROTEIN 6.4 G/DL (6.4-8.2); eCRCL 82 ML/MIN; eGFR > 90 ML/MIN
[2022-12-13] MEDS: metoprolol tartrate 25mg tablet CORPAK SCH ×2 (09:19→19:50)
[2022-12-13] MEDS: rifaximin 550mg tablet CORPAK SCH ×2 (09:19→19:51)
[2022-12-13] MEDS: famotidine/PF 10 mg/ml inj IV SCH (09:20)
[2022-12-13] MEDS: thiamine 100mg/ml 2ml inj. IV SCH ×3 (09:22→19:51)
[2022-12-13] MEDS: folic acid 1mg/0.2ml inj IV SCH (09:22)
[2022-12-13] MEDS: dextrose 5%-1/2 normal saline 1,000 ML IV SCH (11:45)
--- NOTE | 2022-12-13 11:59 | NUR ---
ORDERS TO DISCONTINUE SITTER AND RESTRAINTS PUT IN PER DR. WOODS.
[2022-12-13] MEDS: DOBUTamine-DoBUTrex 500mg/D5W 250 ML IV SCH (15:30)
--- NOTE | 2022-12-13 15:47 | NUR ---
WALKED PATIENT WITH 2 PERSON ASSIST WITH FRONT WHEEL WALKER. PATIENT AMBULATED 100 FEET.
[2022-12-13] MEDS: LORazepam 2 mg/ml vial IV PRN ×2 (17:21→21:16)
--- NOTE | 2022-12-13 17:38 | NUR ---
Ativan 2 mg given for agitation.
--- NOTE | 2022-12-13 17:39 | NUR ---
Landeros catheter is removed without complication.
[2022-12-13] MEDS: nicotine 14mg patch - 24hr TD SCH (19:49)
--- NOTE | 2022-12-13 22:00 | NUR ---
Pt agitated cursing at staff, pulled out LFA IV, attempting to ambulate unassisted pulling at line, placed self onto ground next to bed on knees, pushing staff away cursing at staff, got self off of ground and ambulated to door lowering self to knees holding onto trash can, pt stating he thinks hes on a space ship and doesn't want to ride the spaceship, pt picked self up from knees and assisted back into bed, contacted Dr. Sidhu and notified about resident placing self on ground onto knees, increased confusion/agitation, obtained orders for restraints and PRN vallium 10mg Q2 hr for agitation. Sitter at bedside, currently in soft restraints, PRN valium administered and affective in relief of agitation, VSS, respirations even and unlabored.
[2022-12-13] MEDS: diazepam inj 5 MG/ML inj. IV PRN (22:30)
[2022-12-14] VITALS (15 sets, daily range): BP systolic 132–165; BP diastolic 76–102; PULSE 81–124; RESP 13–22; TEMP 97.4–97.8; O2SAT 97–100
[2022-12-14] MEDS: dextrose 5%-1/2 normal saline 1,000 ML IV SCH (01:15)
[2022-12-14] MEDS: diazepam inj 5 MG/ML inj. IV PRN ×2 (04:32→12:46)
[2022-12-14 05:56] LABS: HEMATOCRIT 35.7 % (42.0-52.0); HEMOGLOBIN 11.7 g/dl (14.0-17.9); MEAN CORPUSCULAR HGB CONC 32.8 g/dL (33.0-36.5); MEAN PLATELET VOLUME 8.9 FL (7.4-10.4)
[2022-12-14 06:00] LABS: BASOPHILS # (AUTO) 0.1 X10'3 (0-0.2); BASOPHILS % (AUTO) 1.1 % (0-1); EOSINOPHILS # (AUTO) 0.4 X10'3 (0-0.9); LYMPHOCYTES # (AUTO) 0.9 X10'3 (1.1-4.8); LYMPHOCYTES % (AUTO) 16.3 % (21-51); MEAN CORPUSCULAR HEMOGLOBIN 31.9 PG (27.0-31.0); MEAN CORPUSCULAR VOLUME 97.1 FL (78-98); MONOCYTES # (AUTO) 0.7 X10'3 (0-0.9); MONOCYTES % (AUTO) 12.8 % (2-12); NEUTROPHILS # (AUTO) 3.5 X10'3 (1.8-7.7); NEUTROPHILS % (AUTO) 62.8 % (42-75); PLATELET COUNT 155 X10'3 (140-440); RED BLOOD COUNT 3.67 X10'6 (4.70-6.10); RED CELL DISTRIBUTION WIDTH 15.5 % (11.5-14.5); WHITE BLOOD COUNT 5.6 X10'3 (4.5-11.0)
[2022-12-14 06:19] LABS: ALANINE AMINOTRANSFERASE 86 U/L (12-78); ALBUMIN 2.8 G/DL (3.4-5.0); ALBUMIN/GLOBULIN RATIO 0.8 (1.1-1.5); ALKALINE PHOSPHATASE 68 IU/L (46-116); ANION GAP 7 (8-16); ASPARTATE AMINO TRANSFERASE 29 U/L (10-37); BILIRUBIN,TOTAL 2.6 MG/DL (0.1-1.0); BLOOD UREA NITROGEN 16 MG/DL (7-18); BUN/CREATININE RATIO 19.5 (10.0-20.0); CALCIUM 8.5 MG/DL (8.5-10.1); CHLORIDE 108 MMOL/L (99-107); CREATININE 0.82 MG/DL (0.60-1.10); GLUCOSE 100 MG/DL (70-104); SODIUM 140 MMOL/L (135-145); TOTAL CARBON DIOXIDE 24.6 MMOL/L (24-32); TOTAL PROTEIN 6.4 G/DL (6.4-8.2); eCRCL 81 ML/MIN; eGFR > 90 ML/MIN
--- NOTE | 2022-12-14 06:43 | NUR ---
Patient in room PCU 3023. I have received report from Marcus MENCHACA and had the opportunity to ask questions and assume patient care.
--- NOTE | 2022-12-14 07:10 | NUR ---
PAGER ID: [phone] MESSAGE: Mike [id number], Pt has critical lab value K - 3.0. Leonardo [id number]
[2022-12-14] MEDS ORDERED: magnesium Cl slow-release 64mg tablet PO PRN (07:25)
[2022-12-14] MEDS ORDERED: potassium Cl 40MEQ/1/2NS 520ml 520 ML IV PRN (07:25)
[2022-12-14] MEDS ORDERED: potassium Cl 20 mEq SR tablet PO PRN (07:25)
[2022-12-14] MEDS ORDERED: magnesium 4gm in 100ml NS 100 ML IV PRN (07:25)
[2022-12-14] MEDS ORDERED: nicotine 14mg patch - 24hr TD SCH (08:00)
[2022-12-14] MEDS: potassium Cl 20 mEq SR tablet PO PRN ×2 (08:52→21:17)
[2022-12-14] MEDS: rifaximin 550mg tablet CORPAK SCH ×2 (08:52→21:14)
[2022-12-14] MEDS: famotidine/PF 10 mg/ml inj IV SCH (08:53)
[2022-12-14] MEDS: folic acid 1mg/0.2ml inj IV SCH (08:53)
[2022-12-14] MEDS: metoprolol tartrate 25mg tablet CORPAK SCH ×2 (08:53→21:15)
[2022-12-14] MEDS: thiamine 100mg/ml 2ml inj. IV SCH ×3 (08:53→21:19)
[2022-12-14] MEDS: nicotine 14mg patch - 24hr TD SCH (08:54)
--- NOTE | 2022-12-14 11:04 | NUR ---
F/u 12/14: Pt presents with abdominal distention though KUB on 12/11 did not suggest SBO per MD note. Per EMR Corpak was d/c on 12/12 by MD and pt advanced to regular diet. Pt with average PO intake of ~25% x 4 meals not meeting estimated nutrient needs. Recommend Ensure Enlive TIDWM to better help meet estimated needs; pending physician approval in EMR. Pt continues with metabolic encephalopathy diagnosis, confused, A0x1 and on restraints with a sitter due to combativeness and pulling on lines/catheter per EMR. LBM on 12/13 per EMR. Will continue to monitor and make recommendations as appropriate. Recommendations: 1) continue regular diet per MD 2) Ensure Enlive TIDWM; pending physician approval in EMR 3) Routine Thiamine, Folic acid, and MVI d/t EtOH hx 4) Routine/PRN bowel care 5) Monitor need for ORAL HYGIENIST consult given A0 x 1 Addendum: 12/14/22 at [address] Amended: Links added. Addendum: 12/14/22 at [address] F/u 12/14: Pt presents with abdominal distention though KUB on 12/11 did not suggest SBO per MD note. Per EMR [employer] was d/c on 12/12 by MD and pt advanced to regular diet. Pt with average PO intake of ~25% x 4 meals not meeting estimated nutrient needs. Recommend Ensure Enlive TIDWM to better help meet estimated needs; pending physician approval in EMR. Noted sepsis diagnosis in MD note on 12/11; adjusting protein needs. Pt continues with metabolic encephalopathy diagnosis, confused, A0x1 and on restraints with a sitter due to combativeness and pulling on lines/catheter per EMR. LBM on 12/13 per EMR. Will continue to monitor and make recommendations as appropriate. Recommendations: 1) continue regular diet per MD 2) Ensure Enlive TIDWM; pending physician approval in EMR 3) Routine Thiamine, Folic acid, and MVI d/t EtOH hx 4) Routine/PRN bowel care 5) Monitor need for ORAL HYGIENIST consult given A0 x 1
[2022-12-14] MEDS: lactose-reduced food (Ensure Enlive) - 237ml bottle PO SCH ×2 (13:00→18:00)
[2022-12-14] MEDS: spironolactone 25 MG tablet PO SCH (13:25)
--- NOTE | 2022-12-14 14:48 | NUR ---
PAGER ID: [phone] MESSAGE: Douglasmagen [id number], Pt is eating and drinking well, he is also pulling at IV lines. Does he need the D5 1/2 NS or can we cancel that order? Leonardo [id number]
--- NOTE | 2022-12-14 18:38 | NUR ---
Problems reprioritized. Patient report given, questions answered & plan of care reviewed with Tanya MENCHACA.
[2022-12-15 02:00] VITALS: BP 139/88; PULSE 83; RESP 18; TEMP 98; O2SAT 99
[2022-12-15 06:06] LABS: BASOPHILS # (AUTO) 0.1 X10'3 (0-0.2); BASOPHILS % (AUTO) 1.4 % (0-1); EOSINOPHILS # (AUTO) 0.4 X10'3 (0-0.9); HEMATOCRIT 36.8 % (42.0-52.0); LYMPHOCYTES % (AUTO) 16.7 % (21-51); MEAN CORPUSCULAR HEMOGLOBIN 31.7 PG (27.0-31.0); MEAN CORPUSCULAR HGB CONC 32.7 g/dL (33.0-36.5); MEAN CORPUSCULAR VOLUME 96.9 FL (78-98); MEAN PLATELET VOLUME 9.6 FL (7.4-10.4); MONOCYTES # (AUTO) 0.7 X10'3 (0-0.9); MONOCYTES % (AUTO) 10.6 % (2-12); NEUTROPHILS % (AUTO) 65.3 % (42-75); PLATELET COUNT 188 X10'3 (140-440); RED CELL DISTRIBUTION WIDTH 15.4 % (11.5-14.5); WHITE BLOOD COUNT 6.2 X10'3 (4.5-11.0)
--- NOTE | 2022-12-15 06:27 | NUR ---
Patient in room PCU 3023. I have received report from Tanya MENCHACA and had the opportunity to ask questions and assume patient care.
[2022-12-15 06:52] LABS: ALANINE AMINOTRANSFERASE 74 U/L (12-78); ALBUMIN/GLOBULIN RATIO 0.8 (1.1-1.5); ALKALINE PHOSPHATASE 78 IU/L (46-116); ANION GAP 8 (8-16); ASPARTATE AMINO TRANSFERASE 30 U/L (10-37); BILIRUBIN,TOTAL 1.9 MG/DL (0.1-1.0); BLOOD UREA NITROGEN 18 MG/DL (7-18); CHLORIDE 108 MMOL/L (99-107); CREATININE 0.82 MG/DL (0.60-1.10); GLUCOSE 98 MG/DL (70-104); POTASSIUM 4.6 MMOL/L (3.5-5.1); SODIUM 140 MMOL/L (135-145); TOTAL CARBON DIOXIDE 23.6 MMOL/L (24-32); TOTAL PROTEIN 6.8 G/DL (6.4-8.2); eCRCL 81 ML/MIN; eGFR > 90 ML/MIN
--- NOTE | 2022-12-15 06:54 | NUR ---
Problems reprioritized. Patient report given, questions answered & plan of care reviewed with Leonardo
[2022-12-15 07:00] VITALS: BP 147/101; PULSE 103; RESP 18; TEMP 97.8; O2SAT 99
[2022-12-15 08:00] VITALS: RESP 18; O2SAT 99
[2022-12-15] MEDS: lactose-reduced food (Ensure Enlive) - 237ml bottle PO SCH ×2 (08:00→13:43)
[2022-12-15] MEDS: rifaximin 550mg tablet CORPAK SCH (08:00)
[2022-12-15] MEDS: metoprolol tartrate 25mg tablet CORPAK SCH (08:00)
[2022-12-15] MEDS: thiamine 100mg/ml 2ml inj. IV SCH (08:00)
[2022-12-15] MEDS: nicotine 14mg patch - 24hr TD SCH (08:00)
[2022-12-15] MEDS: folic acid 1mg/0.2ml inj IV SCH (08:00)
[2022-12-15] MEDS: famotidine/PF 10 mg/ml inj IV SCH (08:00)
[2022-12-15] MEDS: spironolactone 25 MG tablet PO SCH ×2 (08:30→09:01)
[2022-12-15 11:00] VITALS: BP 133/69; PULSE 116; RESP 16; TEMP 98.8; O2SAT 98
--- NOTE | 2022-12-15 13:41 | NUR ---
PAGER ID: [phone] MESSAGE: Douglasmagen [id number], Pt is wanting to leave the hospital, I walked him unassisted and he went 300 ft without a walker. Did you want to discharge him or assess him for discharge? Leonardo [phone]
--- NOTE | 2022-12-15 14:42 | NUR ---
Pt has left AMA. Dr Kat and myself discussed with him the benefits of staying and pt stated,"I don't want to stay no more, I can't stay another day." Pt was unhooked from all tele and IV. I sent pt with scrubs and gown along with a blanket. I asked if he wanted some food and shoes but he refused and wanted to leave now. i walked pt to the [facility] and he walked out of parking lot on the street with the destination of [facility]. AMA form was signed and witnessed, occurrence report will be filled out.
[2022-12-16] MEDS ORDERED: LOSA25TA41 PO (10:57)
[2022-12-16] MEDS ORDERED: METO50TA16 PO (10:57)
[2022-12-16] MEDS ORDERED: SPIR25TA5 PO (10:57)
[2022-12-16] MEDS ORDERED: POTA-366 PO (10:57)
[2022-12-16] MEDS ORDERED: FURO20TA4 PO (10:57)
[2022-12-16] MEDS ORDERED: CARV-50 PO (10:57)
[2022-12-16] MEDS ORDERED: ASPI-1144 PO (10:57)
== END 2022-12-15 14:35 | disposition left against medical advice (07) | DRG 133 ==
LOC: ER 08:32 → ED HOLD 13:16 → ICU 2S 15:00 → PCU 3S 12-08 16:48
PROVIDERS: ADMIT Internal Medicine Critical Care Medicine; ATTEND Internal Medicine Critical Care Medicine
PROC: 02HV33Z Insertion of Infusion Device into Superior Vena Cava, Percutaneous Approach (ICD-10-PCS; principal; 2022-12-04)
PROC: 5A1945Z Respiratory Ventilation, 24-96 Consecutive Hours (ICD-10-PCS; 2022-12-04)
PROC: 0BH17EZ Insertion of Endotracheal Airway into Trachea, Via Natural or Artificial Opening (ICD-10-PCS; 2022-12-04)
PROC: 05HB33Z Insertion of Infusion Device into Right Basilic Vein, Percutaneous Approach (ICD-10-PCS; 2022-12-10)
DX: J96.21 Acute and chronic respiratory failure with hypoxia (principal); N17.0 Acute kidney failure with tubular necrosis; I50.23 Acute on chronic systolic (congestive) heart failure; G93.41 Metabolic encephalopathy; F10.231 Alcohol dependence with withdrawal delirium; K70.40 Alcoholic hepatic failure without coma; I11.0 Hypertensive heart disease with heart failure; E87.20 Acidosis, unspecified; E87.3 Alkalosis; E87.6 Hypokalemia; B17.9 Acute viral hepatitis, unspecified; K74.60 Unspecified cirrhosis of liver; F31.9 Bipolar disorder, unspecified; Z53.21 Procedure and treatment not carried out due to patient leaving prior to being seen by health care provider; E87.1 Hypo-osmolality and hyponatremia; K76.82 Hepatic encephalopathy; D53.9 Nutritional anemia, unspecified; I48.20 Chronic atrial fibrillation, unspecified; I42.0 Dilated cardiomyopathy; D69.6 Thrombocytopenia, unspecified; E16.2 Hypoglycemia, unspecified; F15.10 Other stimulant abuse, uncomplicated; Z59.00 Homelessness unspecified; Z72.0 Tobacco use; Z83.3 Family history of diabetes mellitus; Z79.82 Long term (current) use of aspirin; Z79.899 Other long term (current) drug therapy
CPT/HCPCS: 36410; 36415; 36600; 70450; 71045; 71250; 74018; 74176; 76937; 80048; 80053; 80320; 81001; 82009; 82140; 82803; 82948; 83605; 83690; 83735; 83880; 84100; 84132; 84134; 84145; 84478; 84484; 85007; 85008; 85018; 85025; 85027; 85610; 85730; 87070; 87077; 87081; 87185; 93005; 93306; 94002; 94003; 94640; 94760; 94799; 97116; 97161; 97530; 99285; A4615; A5200; A6213; A6250; A6258; A6446; A6449; C1751; C1758; C9113; G0378; J0360; J0696; J1120; J1250; J1644; J1940; J2060; J2270; J2310; J2405; J2704; J3010; J3360; J3411; J3475; J3480; J3490; J7030; J7040; J7042; J7050; J7070; P9047

== ENCOUNTER 2022-12-15 22:04 | Inpatient (IN) | payer MEDICAID ==
[~2022-12-15] VITALS: Ht 170.2 cm; Wt 58.9 kg
[~2022-12-15 22:04] MED LIST changes: -ASPI-1265 PO; -CARV-50 PO; -FURO-150 PO; -LOSA-415 PO; -METO50TA17 PO; -POTA-208 PO; -SPIR25TA5 PO; +UNABLE TO OBTAIN
[2022-12-15 22:49] LABS: BASOPHILS # (AUTO) 0.2 X10'3 (0-0.2); BASOPHILS % (AUTO) 1.8 % (0-1); EOSINOPHILS # (AUTO) 0.2 X10'3 (0-0.9); EOSINOPHILS % (AUTO) 2.3 % (0-6); HEMATOCRIT 38.4 % (42.0-52.0); HEMOGLOBIN 12.6 g/dl (14.0-17.9); LYMPHOCYTES # (AUTO) 0.9 X10'3 (1.1-4.8); LYMPHOCYTES % (AUTO) 9.8 % (21-51); MEAN CORPUSCULAR HEMOGLOBIN 32.1 PG (27.0-31.0); MEAN CORPUSCULAR HGB CONC 32.9 g/dL (33.0-36.5); MEAN CORPUSCULAR VOLUME 97.6 FL (78-98); MEAN PLATELET VOLUME 9.4 FL (7.4-10.4); MONOCYTES % (AUTO) 10.8 % (2-12); NEUTROPHILS # (AUTO) 6.7 X10'3 (1.8-7.7); NEUTROPHILS % (AUTO) 75.3 % (42-75); PLATELET COUNT 220 X10'3 (140-440); RED BLOOD COUNT 3.93 X10'6 (4.70-6.10); RED CELL DISTRIBUTION WIDTH 15.9 % (11.5-14.5); WHITE BLOOD COUNT 8.9 X10'3 (4.5-11.0)
[2022-12-15] MEDS ORDERED: diltiazem 5mg/ml 5ml inj. IV ONE (23:00)
[2022-12-15] MEDS ORDERED: furosemide 40mg/4ml inj IV ONE (23:00)
[2022-12-15 23:01] LABS: ALANINE AMINOTRANSFERASE 73 U/L (12-78); ALBUMIN 3.5 G/DL (3.4-5.0); ALBUMIN/GLOBULIN RATIO 0.8 (1.1-1.5); ALKALINE PHOSPHATASE 109 IU/L (46-116); ANION GAP 7 (8-16); ASPARTATE AMINO TRANSFERASE 38 U/L (10-37); BILIRUBIN,TOTAL 1.9 MG/DL (0.1-1.0); BLOOD UREA NITROGEN 24 MG/DL (7-18); BUN/CREATININE RATIO 20.9 (10.0-20.0); CALCIUM 9.7 MG/DL (8.5-10.1); CHLORIDE 105 MMOL/L (99-107); CREATININE 1.15 MG/DL (0.60-1.10); GLUCOSE 92 MG/DL (70-104); POTASSIUM 4.5 MMOL/L (3.5-5.1); SODIUM 142 MMOL/L (135-145); TOTAL PROTEIN 7.7 G/DL (6.4-8.2); eGFR 66 ML/MIN
[2022-12-15 23:08] LABS: PRO BRAIN NATRIURETIC PEPTIDE 7985 PG/ML (0-125)
[2022-12-15] MEDS ORDERED: furosemide 10 MG/1 ML 10ml inj IV ONE (23:10)
[2022-12-15 23:18] LABS: APTT 25 SECONDS (22-32); INR 1.1 INR; PROTHROMBIN TIME 11.5 SECONDS (9.0-12.0)
[2022-12-15 23:20] LABS: ABG BASE EXCESS 1.8 mmol/L (-2.0-2.0); ABG HCO3 24.7 mmol/L (22.0-26.0); ABG OXYGEN SATURATION 96.8 % (94-97); ABG PCO2 (T) 33.6 mmHg (35.0-48.0); ABG PH (T) 7.485 (7.340-7.440); ABG PO2 (T) 81.1 mmHg (75.0-100.0); ALLEN'S TEST POSITIVE; FCOHb 0.5 % (0.0-3.9); FHHb 3.2 % (0.0-5.0); FMetHb 0.3 % (0.0-1.5); MODE ROOM AIR; TOTAL HEMOGLOBIN 12.8 G/dl (14.0-17.9)
[2022-12-15 23:26] LABS: ETHANOL < 10 MG/DL (<10)
[2022-12-15 23:53] LABS: ACETAMINOPHEN < 2.0 UG/ML (10-30)
[2022-12-16] VITALS (20 sets, daily range): BP systolic 105–142; BP diastolic 47–90; PULSE 76–161; RESP 14–24; TEMP 97.7–98.9; O2SAT 95–100
[2022-12-16] MEDS ORDERED: acetaminophen 325mg tablet PO PRN ×2 (01:00)
[2022-12-16] MEDS ORDERED: bisacodyl 10mg suppository rectal RC PRN (01:00)
[2022-12-16] MEDS ORDERED: acetaminophen 650mg rectal suppository RC PRN (01:00)
[2022-12-16] MEDS ORDERED: diphenhydrAMINE 50 mg/ml inj IV PRN (01:00)
[2022-12-16] MEDS ORDERED: morphine 2 MG/ML inj. syringe IV PRN (01:00)
[2022-12-16] MEDS ORDERED: normal saline 1000ml 1,000 ML IV SCH (01:00)
[2022-12-16] MEDS ORDERED: ondansetron 4mg rapidly disintigrating tab PO PRN (01:00)
[2022-12-16] MEDS ORDERED: magnesium hydroxide 30ml (MOM) UD suspension PO PRN (01:00)
[2022-12-16] MEDS ORDERED: diphenhydrAMINE 25mg capsule PO PRN (01:00)
[2022-12-16] MEDS ORDERED: ondansetron/PF 4mg/2ml inj IV PRN (01:00)
[2022-12-16] MEDS ORDERED: mag hydrox/Alum hydrox/simeth 30ml oral suspension PO PRN (01:00)
[2022-12-16] MEDS ORDERED: ipratropium/albuterol 3ml nebule NEB PRN (01:00)
[2022-12-16] MEDS ORDERED: HYDROcodone/acetaminophen 5mg/325mg tablet PO PRN (01:00)
[2022-12-16] MEDS ORDERED: heparin 25,000 UNIT/250ml bag 250 ML IV PRN (01:10)
[2022-12-16] MEDS ORDERED: heparin 10,000 units/1 ML INJ IV ONE (01:10)
[2022-12-16] MEDS ORDERED: heparin 10,000 units/1 ML INJ IV PRN (01:10)
[2022-12-16 01:24] LABS: MAGNESIUM 1.8 MG/DL (1.5-2.4); PHOSPHORUS 3.4 MG/DL (2.3-4.5)
[2022-12-16 01:30] LABS: D-DIMER 3.07 MG/L FEU (0-0.50)
[2022-12-16 01:35] LABS: BASOPHILS # (AUTO) 0.1 X10'3 (0-0.2); BASOPHILS % (AUTO) 1.1 % (0-1); EOSINOPHILS # (AUTO) 0.2 X10'3 (0-0.9); EOSINOPHILS % (AUTO) 2.7 % (0-6); HEMATOCRIT 35.6 % (42.0-52.0); HEMOGLOBIN 11.8 g/dl (14.0-17.9); MEAN CORPUSCULAR HEMOGLOBIN 31.9 PG (27.0-31.0); MEAN CORPUSCULAR HGB CONC 33.1 g/dL (33.0-36.5); MEAN CORPUSCULAR VOLUME 96.4 FL (78-98); MEAN PLATELET VOLUME 8.8 FL (7.4-10.4); MONOCYTES # (AUTO) 0.9 X10'3 (0-0.9); MONOCYTES % (AUTO) 10.5 % (2-12); NEUTROPHILS # (AUTO) 6.1 X10'3 (1.8-7.7); NEUTROPHILS % (AUTO) 73.7 % (42-75); PLATELET COUNT 200 X10'3 (140-440); RED BLOOD COUNT 3.69 X10'6 (4.70-6.10); RED CELL DISTRIBUTION WIDTH 15.3 % (11.5-14.5); WHITE BLOOD COUNT 8.3 X10'3 (4.5-11.0)
[2022-12-16 02:38] LABS: URINE AMPHETAMINE SCREEN NEGATIVE (Neg); URINE BARBITUATE SCREEN NEGATIVE (Neg); URINE BENZODIAZEPINES SCREEN POSITIVE (Neg); URINE CANNABINOID SCREEN POSITIVE (Neg); URINE COCAINE SCREEN NEGATIVE (Neg); URINE OPIATE SCREEN NEGATIVE (Neg); URINE PHENCYCLIDINE SCREEN NEGATIVE (Neg)
--- NOTE | 2022-12-16 07:15 | NUR ---
Patient in room PCU 3029G. I have received report from MISHA RN FROM ER and had the opportunity to ask questions and assume patient care.
[2022-12-16] MEDS ORDERED: furosemide 10 MG/1 ML 10ml inj IV SCH (08:00)
[2022-12-16] MEDS: pantoprazole 40mg Tablet.DR PO SCH (08:15)
[2022-12-16] MEDS: docusate sod 100mg capsule PO SCH ×2 (08:15→20:26)
[2022-12-16] MEDS: nicotine 21mg patch - 24 hr TD SCH (08:16)
--- NOTE | 2022-12-16 09:07 | NUR ---
Page Sent PAGER ID: [phone] MESSAGE: [phone] Patient's HR was in the 170s when he stood to use the urinal. Now he is in the 130s. He is not on cardizem. He is on a heparin drip. - Sarah (student nurse)/Natalie
--- NOTE | 2022-12-16 10:00 | NUR ---
Problems reprioritized. Patient report given, questions answered & plan of care reviewed with BERNARDA LEYVA.
[2022-12-16] MEDS ORDERED: iohexol 350MG/ML 100ml bottle IV ONE (10:21)
[2022-12-16] MEDS ORDERED: FURO20TA4 PO (10:57)
[2022-12-16] MEDS ORDERED: SPIR25TA5 PO (10:57)
[2022-12-16] MEDS ORDERED: METO50TA16 PO (10:57)
[2022-12-16] MEDS ORDERED: ASPI-1144 PO (10:57)
[2022-12-16] MEDS ORDERED: CARV-50 PO (10:57)
[2022-12-16] MEDS ORDERED: LOSA25TA41 PO (10:57)
[2022-12-16] MEDS ORDERED: POTA-366 PO (10:57)
[2022-12-16] MEDS: diltiazem-NS 100mg/100ml 100 ML IV SCH ×2 (11:14→21:20)
--- NOTE | 2022-12-16 12:18 | NUR ---
Pt's CT came back negative. Dr Kat ordered to stop the heparin gtt. Im stopping it now.
--- NOTE | 2022-12-16 13:11 | NUR ---
Student documentation: I have reviewed and agree with assessment performed and documented by VINNY MCMANUS .
[2022-12-16] MEDS: furosemide 40mg/4ml inj IV SCH (16:49)
--- NOTE | 2022-12-16 18:24 | NUR ---
Problems reprioritized. Patient report given, questions answered & plan of care reviewed with Virginia MENCHACA.
[2022-12-16] MEDS: carVEDilol 3.125mg tablet PO SCH (20:26)
[2022-12-16] MEDS: apixaban 5mg tablet PO SCH (20:30)
[2022-12-16] MEDS ORDERED: temazepam 15mg capsule PO PRN (21:00)
[2022-12-17] VITALS (7 sets, daily range): BP systolic 91–125; BP diastolic 55–86; PULSE 66–115; RESP 12–20; TEMP 97.4–97.7; O2SAT 95–98
[2022-12-17] MEDS: furosemide 40mg/4ml inj IV SCH ×2 (00:09→08:25)
--- NOTE | 2022-12-17 06:22 | NUR ---
Problems reprioritized. Patient report given, questions answered & plan of care reviewed with Luz MENCHACA. Pt stable at shift change.
[2022-12-17] MEDS: diltiazem-NS 100mg/100ml 100 ML IV SCH (06:47)
[2022-12-17] MEDS: carVEDilol 3.125mg tablet PO SCH (08:25)
[2022-12-17] MEDS: apixaban 5mg tablet PO SCH (08:25)
[2022-12-17] MEDS: nicotine 21mg patch - 24 hr TD SCH (08:25)
[2022-12-17] MEDS: pantoprazole 40mg Tablet.DR PO SCH (08:25)
[2022-12-17] MEDS: docusate sod 100mg capsule PO SCH (08:25)
[2022-12-17] MEDS ORDERED: spironolactone 25 MG tablet PO SCH (08:30)
[2022-12-17 08:55] LABS: BASOPHILS # (AUTO) 0.1 X10'3 (0-0.2); EOSINOPHILS # (AUTO) 0.4 X10'3 (0-0.9); EOSINOPHILS % (AUTO) 5.5 % (0-6); MONOCYTES # (AUTO) 0.6 X10'3 (0-0.9)
[2022-12-17 08:58] LABS: BASOPHILS % (AUTO) 0.7 % (0-1); HEMATOCRIT 42.2 % (42.0-52.0); LYMPHOCYTES # (AUTO) 1.2 X10'3 (1.1-4.8); LYMPHOCYTES % (AUTO) 15.3 % (21-51); MEAN CORPUSCULAR HEMOGLOBIN 32.2 PG (27.0-31.0); MEAN CORPUSCULAR HGB CONC 33.2 g/dL (33.0-36.5); MEAN CORPUSCULAR VOLUME 97.1 FL (78-98); MEAN PLATELET VOLUME 9.7 FL (7.4-10.4); MONOCYTES % (AUTO) 7.3 % (2-12); NEUTROPHILS # (AUTO) 5.4 X10'3 (1.8-7.7); NEUTROPHILS % (AUTO) 71.2 % (42-75); PLATELET COUNT 291 X10'3 (140-440); RED BLOOD COUNT 4.35 X10'6 (4.70-6.10); RED CELL DISTRIBUTION WIDTH 15.6 % (11.5-14.5); WHITE BLOOD COUNT 7.6 X10'3 (4.5-11.0)
[2022-12-17 09:14] LABS: ALANINE AMINOTRANSFERASE 61 U/L (12-78); ALBUMIN 3.7 G/DL (3.4-5.0); ALBUMIN/GLOBULIN RATIO 0.8 (1.1-1.5); ALKALINE PHOSPHATASE 101 IU/L (46-116); ANION GAP 7 (8-16); ASPARTATE AMINO TRANSFERASE 36 U/L (10-37); BILIRUBIN,TOTAL 1.8 MG/DL (0.1-1.0); BLOOD UREA NITROGEN 29 MG/DL (7-18); BUN/CREATININE RATIO 26.6 (10.0-20.0); CALCIUM 10.1 MG/DL (8.5-10.1); CHLORIDE 96 MMOL/L (99-107); CREATININE 1.09 MG/DL (0.60-1.10); GLUCOSE 147 MG/DL (70-104); POTASSIUM 4.3 MMOL/L (3.5-5.1); SODIUM 134 MMOL/L (135-145); TOTAL CARBON DIOXIDE 31.2 MMOL/L (24-32); TOTAL PROTEIN 8.5 G/DL (6.4-8.2); eCRCL 63 ML/MIN; eGFR 70 ML/MIN
[2022-12-17] MEDS ORDERED: FURO20TA4 PO (11:06)
--- NOTE | 2022-12-17 15:28 | NUR ---
Pt is up and dressed and ready for discharge. Pt's PIV removed with cannula intact. Pt's discharge paperwork was reviewed and questions answered. Pt in NAD. Pt waiting for social work to bring pants and shoes per pt.
== END 2022-12-17 16:29 | disposition home or self-care (01) | DRG 201 ==
LOC: ER 22:05 → ED HOLD 12-16 01:06 → PCU 3S 12-16 07:33
PROVIDERS: ADMIT Family Medicine; ATTEND Family Medicine
PROC: B32T1ZZ Computerized Tomography (CT Scan) of Left Pulmonary Artery using Low Osmolar Contrast (ICD-10-PCS; principal; 2022-12-16)
PROC: B3201ZZ Computerized Tomography (CT Scan) of Thoracic Aorta using Low Osmolar Contrast (ICD-10-PCS; 2022-12-16)
PROC: B32S1ZZ Computerized Tomography (CT Scan) of Right Pulmonary Artery using Low Osmolar Contrast (ICD-10-PCS; 2022-12-16)
DX: I48.20 Chronic atrial fibrillation, unspecified (principal); J96.01 Acute respiratory failure with hypoxia; I50.23 Acute on chronic systolic (congestive) heart failure; R74.8 Abnormal levels of other serum enzymes; D64.9 Anemia, unspecified; F12.10 Cannabis abuse, uncomplicated; F15.129 Other stimulant abuse with intoxication, unspecified; Z20.822 Contact with and (suspected) exposure to COVID-19; N18.2 Chronic kidney disease, stage 2 (mild); D72.829 Elevated white blood cell count, unspecified; J44.9 Chronic obstructive pulmonary disease, unspecified; I13.0 Hypertensive heart and chronic kidney disease with heart failure and stage 1 through stage 4 chronic kidney disease, or unspecified chronic kidney disease; Z59.00 Homelessness unspecified; Z72.0 Tobacco use; Z82.5 Family history of asthma and other chronic lower respiratory diseases; Z83.3 Family history of diabetes mellitus; Z83.79 Family history of other diseases of the digestive system; Z81.1 Family history of alcohol abuse and dependence; Z86.19 Personal history of other infectious and parasitic diseases
CPT/HCPCS: 36415; 36600; 71045; 71260; 80053; 80305; 80320; 80329; 82803; 83605; 83735; 83880; 83930; 84100; 84145; 84484; 85018; 85025; 85379; 85610; 85730; 87040; 87081; 87502; 87503; 87811; 94760; 99285; G0378; J1644; J1940; J3490; J7030; Q9967

== ENCOUNTER 2022-12-19 18:24 | Inpatient (IN) | payer MEDICAID ==
[~2022-12-19] VITALS: Ht 172.7 cm; Wt 84.7 kg
[~2022-12-19 18:24] MED LIST changes: +ASPI-1144 PO; +CARV-50 PO; +FURO20TA4 PO; +LOSA25TA41 PO; +POTA-366 PO; +SPIR25TA5 PO; -UNABLE TO OBTAIN
--- NOTE | 2022-12-19 19:06 | NUR ---
pt states he is here for his heart meds (unk) pt states he was here recently and was not able to pick meds up from the pharmacy. pt states they didnt have them. pt requested pharmacy staff to call 911 so he could get a ride to ER for meds. last visit to ER pt states he left AMA because he wanted to have a cigarette.
--- NOTE | 2022-12-19 19:08 | NUR ---
pt denies cp or sob. pt states he has a known hx of afib w/ rvr.
[2022-12-19] MEDS ORDERED: carVEDilol 12.5mg tablet PO ONE (19:40)
[2022-12-19] MEDS ORDERED: apixaban 5mg tablet PO ONE (19:40)
[2022-12-19 20:13] LABS: ALANINE AMINOTRANSFERASE 51 U/L (12-78); ALBUMIN 3.8 G/DL (3.4-5.0); ALBUMIN/GLOBULIN RATIO 0.8 (1.1-1.5); ALKALINE PHOSPHATASE 121 IU/L (46-116); ANION GAP 10 (8-16); ASPARTATE AMINO TRANSFERASE 41 U/L (10-37); BILIRUBIN,TOTAL 1.6 MG/DL (0.1-1.0); BLOOD UREA NITROGEN 39 MG/DL (7-18); BUN/CREATININE RATIO 35.1 (10.0-20.0); CALCIUM 9.7 MG/DL (8.5-10.1); CHLORIDE 100 MMOL/L (99-107); CREATININE 1.11 MG/DL (0.60-1.10); GLUCOSE 82 MG/DL (70-104); MAGNESIUM 2.3 MG/DL (1.5-2.4); POTASSIUM 4.1 MMOL/L (3.5-5.1); SODIUM 138 MMOL/L (135-145); TOTAL CARBON DIOXIDE 28.4 MMOL/L (24-32); TOTAL PROTEIN 8.4 G/DL (6.4-8.2); eCRCL 62 ML/MIN; eGFR 69 ML/MIN
[2022-12-19] MEDS ORDERED: diltiazem 5mg/ml 5ml inj. IV ONE (21:00)
[2022-12-19] MEDS ORDERED: ondansetron/PF 4mg/2ml inj IV PRN (21:05)
[2022-12-19] MEDS ORDERED: potassium Cl 20 mEq SR tablet PO PRN ×2 (21:05)
[2022-12-19] MEDS ORDERED: morphine 2 MG/ML inj. syringe IV PRN (21:05)
[2022-12-19] MEDS ORDERED: magnesium 2GM in 50ml NS 50 ML IV PRN (21:05)
[2022-12-19] MEDS ORDERED: acetaminophen 325mg tablet PO PRN (21:05)
[2022-12-19] MEDS ORDERED: magnesium Cl slow-release 64mg tablet PO PRN (21:05)
[2022-12-19] MEDS ORDERED: mag hydrox/Alum hydrox/simeth 30ml oral suspension PO PRN (21:05)
[2022-12-19] MEDS ORDERED: magnesium hydroxide 30ml (MOM) UD suspension PO PRN (21:05)
[2022-12-19] MEDS ORDERED: magnesium 4gm in 100ml NS 100 ML IV PRN (21:05)
[2022-12-19] MEDS ORDERED: potassium Cl 40MEQ/1/2NS 520ml 520 ML IV PRN (21:05)
[2022-12-19 21:36] LABS: POTASSIUM 3.8 MMOL/L (3.5-5.1)
--- NOTE | 2022-12-19 22:00 | NUR ---
cardizem not given for hr due to heart rate between 80-[address] order.
--- NOTE | 2022-12-19 23:55 | NUR ---
I have reviewed and agree with all interventions, assessments performed and documented by (MIGUEL A NOONAN)
[2022-12-20] VITALS (7 sets, daily range): BP systolic 111–128; BP diastolic 66–79; PULSE 66–97; RESP 11–23; TEMP 97.5–98.4; O2SAT 96–99
[2022-12-20] MEDS: furosemide 40mg/4ml inj IV SCH (07:42)
[2022-12-20] MEDS: apixaban 5mg tablet PO SCH ×2 (07:42→20:30)
[2022-12-20] MEDS: K and/or MAG REPLACEMENT MC SCH ×2 (08:00→20:00)
[2022-12-20] MEDS ORDERED: diltiazem CD 180mg cap (once-daily) PO SCH (08:00)
[2022-12-20] MEDS: furosemide 10 MG/1 ML 10ml inj IV SCH (08:00)
[2022-12-20 08:42] LABS: BASOPHILS # (AUTO) 0.1 X10'3 (0-0.2); BASOPHILS % (AUTO) 1.5 % (0-1); EOSINOPHILS # (AUTO) 0.3 X10'3 (0-0.9); EOSINOPHILS % (AUTO) 7.1 % (0-6); HEMATOCRIT 40.4 % (42.0-52.0); HEMOGLOBIN 13.4 g/dl (14.0-17.9); LYMPHOCYTES # (AUTO) 0.9 X10'3 (1.1-4.8); MEAN CORPUSCULAR HEMOGLOBIN 32.2 PG (27.0-31.0); MEAN CORPUSCULAR HGB CONC 33.2 g/dL (33.0-36.5); MEAN CORPUSCULAR VOLUME 97.2 FL (78-98); MONOCYTES # (AUTO) 0.7 X10'3 (0-0.9); MONOCYTES % (AUTO) 14.7 % (2-12); NEUTROPHILS # (AUTO) 2.7 X10'3 (1.8-7.7); NEUTROPHILS % (AUTO) 57.7 % (42-75); PLATELET COUNT 288 X10'3 (140-440); RED BLOOD COUNT 4.16 X10'6 (4.70-6.10); RED CELL DISTRIBUTION WIDTH 15.6 % (11.5-14.5); WHITE BLOOD COUNT 4.7 X10'3 (4.5-11.0)
[2022-12-20] MEDS: docusate sod 100mg capsule PO SCH ×2 (08:46→20:30)
[2022-12-20 08:57] LABS: ALANINE AMINOTRANSFERASE 43 U/L (12-78); ALBUMIN 3.5 G/DL (3.4-5.0); ALBUMIN/GLOBULIN RATIO 0.8 (1.1-1.5); ALKALINE PHOSPHATASE 99 IU/L (46-116); ANION GAP 8 (8-16); ASPARTATE AMINO TRANSFERASE 40 U/L (10-37); BILIRUBIN,TOTAL 1.9 MG/DL (0.1-1.0); BLOOD UREA NITROGEN 30 MG/DL (7-18); BUN/CREATININE RATIO 32.3 (10.0-20.0); CALCIUM 9.9 MG/DL (8.5-10.1); CHLORIDE 102 MMOL/L (99-107); CREATININE 0.93 MG/DL (0.60-1.10); GLUCOSE 87 MG/DL (70-104); MAGNESIUM 2.2 MG/DL (1.5-2.4); POTASSIUM 4.3 MMOL/L (3.5-5.1); PRO BRAIN NATRIURETIC PEPTIDE 1995 PG/ML (0-125); SODIUM 139 MMOL/L (135-145); eCRCL 73 ML/MIN; eGFR 84 ML/MIN
--- NOTE | 2022-12-20 18:21 | NUR ---
Problems reprioritized. Patient report given, questions answered & plan of care reviewed with Kirti. Addendum: 12/20/22 at 1821 by Luis Abdi RN Amended: Links added.
--- NOTE | 2022-12-20 18:25 | NUR ---
Patient in room PCU 3015. I have received report from Luis MENCHACA and had the opportunity to ask questions and assume patient care.
[2022-12-21 02:00] VITALS: BP 121/70; PULSE 66; RESP 13; TEMP 97.9; O2SAT 99
--- NOTE | 2022-12-21 06:48 | NUR ---
Problems reprioritized. Patient report given, questions answered & plan of care reviewed with Charlene MENCHACA.
[2022-12-21 07:09] LABS: BASOPHILS # (AUTO) 0.1 X10'3 (0-0.2); BASOPHILS % (AUTO) 1.3 % (0-1); EOSINOPHILS # (AUTO) 0.4 X10'3 (0-0.9); EOSINOPHILS % (AUTO) 7.4 % (0-6); HEMATOCRIT 40.2 % (42.0-52.0); HEMOGLOBIN 13.1 g/dl (14.0-17.9); LYMPHOCYTES % (AUTO) 19.6 % (21-51); MEAN CORPUSCULAR HEMOGLOBIN 32.1 PG (27.0-31.0); MEAN CORPUSCULAR HGB CONC 32.6 g/dL (33.0-36.5); MEAN CORPUSCULAR VOLUME 98.2 FL (78-98); MEAN PLATELET VOLUME 9.4 FL (7.4-10.4); MONOCYTES # (AUTO) 0.6 X10'3 (0-0.9); MONOCYTES % (AUTO) 11.6 % (2-12); NEUTROPHILS # (AUTO) 3.1 X10'3 (1.8-7.7); NEUTROPHILS % (AUTO) 60.1 % (42-75); PLATELET COUNT 298 X10'3 (140-440); RED BLOOD COUNT 4.09 X10'6 (4.70-6.10); RED CELL DISTRIBUTION WIDTH 15.5 % (11.5-14.5); WHITE BLOOD COUNT 5.2 X10'3 (4.5-11.0)
[2022-12-21] MEDS: K and/or MAG REPLACEMENT MC SCH ×2 (08:00→20:00)
[2022-12-21] MEDS: furosemide 10 MG/1 ML 10ml inj IV SCH (08:00)
[2022-12-21 08:06] LABS: ALANINE AMINOTRANSFERASE 37 U/L (12-78); ALBUMIN 3.4 G/DL (3.4-5.0); ALBUMIN/GLOBULIN RATIO 0.8 (1.1-1.5); ALKALINE PHOSPHATASE 93 IU/L (46-116); ANION GAP 4 (8-16); ASPARTATE AMINO TRANSFERASE 35 U/L (10-37); BILIRUBIN,TOTAL 1.6 MG/DL (0.1-1.0); BLOOD UREA NITROGEN 25 MG/DL (7-18); BUN/CREATININE RATIO 24.5 (10.0-20.0); CALCIUM 9.2 MG/DL (8.5-10.1); CHLORIDE 103 MMOL/L (99-107); CREATININE 1.02 MG/DL (0.60-1.10); GLUCOSE 96 MG/DL (70-104); MAGNESIUM 1.9 MG/DL (1.5-2.4); POTASSIUM 4.3 MMOL/L (3.5-5.1); PRO BRAIN NATRIURETIC PEPTIDE 1518 PG/ML (0-125); SODIUM 139 MMOL/L (135-145); TOTAL CARBON DIOXIDE 31.7 MMOL/L (24-32); TOTAL PROTEIN 7.8 G/DL (6.4-8.2); eCRCL 66 ML/MIN; eGFR 76 ML/MIN
[2022-12-21] MEDS: apixaban 5mg tablet PO SCH ×2 (08:37→21:55)
[2022-12-21] MEDS: docusate sod 100mg capsule PO SCH ×2 (08:37→21:55)
[2022-12-21] MEDS: furosemide 40mg/4ml inj IV SCH (08:39)
[2022-12-21 10:00] VITALS: BP 138/80; PULSE 83; RESP 17; TEMP 98; O2SAT 100
--- NOTE | 2022-12-21 10:19 | NUR ---
Deyvi RN, taking over care of patient. Deyvi to do assessment, AM meds given.
--- NOTE | 2022-12-21 11:36 | NUR ---
Patient in room PCU 3015. I have received report from GENO MENCHACA and had the opportunity to ask questions and assume patient care.
[2022-12-21 12:11] VITALS: RESP 17; O2SAT 97
[2022-12-21 14:00] VITALS: BP 140/90; PULSE 71; RESP 18; TEMP 97.7; O2SAT 100
--- NOTE | 2022-12-21 14:52 | NUR ---
pt. refuses to use urinal for accurate output, wants to use toilet.
[2022-12-21 18:00] VITALS: BP 136/99; PULSE 51; RESP 16; TEMP 97.9; O2SAT 96
--- NOTE | 2022-12-21 18:08 | NUR ---
Problems reprioritized. Patient report given to alexandria MENCHACA, questions answered & plan of care reviewed with .
[2022-12-21 22:00] VITALS: BP 140/72; PULSE 51; RESP 16; TEMP 98.9; O2SAT 100
[2022-12-22 02:30] VITALS: BP 155/83; PULSE 115; RESP 16; TEMP 100.1; O2SAT 99
--- NOTE | 2022-12-22 06:20 | NUR ---
Received Report from ANGELICA lazo RN
[2022-12-22 07:00] VITALS: BP 169/113; PULSE 116; RESP 18; TEMP 98.1; O2SAT 98
[2022-12-22] MEDS: docusate sod 100mg capsule PO SCH (07:26)
[2022-12-22] MEDS: apixaban 5mg tablet PO SCH (07:26)
[2022-12-22] MEDS: furosemide 40mg/4ml inj IV SCH (07:27)
[2022-12-22] MEDS: K and/or MAG REPLACEMENT MC SCH (08:00)
[2022-12-22 08:44] LABS: BASOPHILS # (AUTO) 0.1 X10'3 (0-0.2); BASOPHILS % (AUTO) 0.5 % (0-1); EOSINOPHILS # (AUTO) 0.3 X10'3 (0-0.9); EOSINOPHILS % (AUTO) 2.9 % (0-6); HEMATOCRIT 43.1 % (42.0-52.0); HEMOGLOBIN 14.2 g/dl (14.0-17.9); LYMPHOCYTES # (AUTO) 0.9 X10'3 (1.1-4.8); MEAN CORPUSCULAR HEMOGLOBIN 31.9 PG (27.0-31.0); MEAN CORPUSCULAR VOLUME 96.9 FL (78-98); MEAN PLATELET VOLUME 9.2 FL (7.4-10.4); MONOCYTES # (AUTO) 0.9 X10'3 (0-0.9); MONOCYTES % (AUTO) 7.9 % (2-12); NEUTROPHILS # (AUTO) 8.7 X10'3 (1.8-7.7); NEUTROPHILS % (AUTO) 80.7 % (42-75); PLATELET COUNT 311 X10'3 (140-440); RED BLOOD COUNT 4.45 X10'6 (4.70-6.10); RED CELL DISTRIBUTION WIDTH 15.4 % (11.5-14.5); WHITE BLOOD COUNT 10.8 X10'3 (4.5-11.0)
[2022-12-22] MEDS ORDERED: diltiazem CD 180mg cap (once-daily) PO ONE (08:50)
[2022-12-22 09:09] LABS: ALANINE AMINOTRANSFERASE 35 U/L (12-78); ALBUMIN 3.6 G/DL (3.4-5.0); ALBUMIN/GLOBULIN RATIO 0.8 (1.1-1.5); ALKALINE PHOSPHATASE 100 IU/L (46-116); ANION GAP 8 (8-16); ASPARTATE AMINO TRANSFERASE 32 U/L (10-37); BILIRUBIN,TOTAL 1.7 MG/DL (0.1-1.0); BLOOD UREA NITROGEN 23 MG/DL (7-18); CALCIUM 9.4 MG/DL (8.5-10.1); CHLORIDE 99 MMOL/L (99-107); GLUCOSE 148 MG/DL (70-104); MAGNESIUM 1.8 MG/DL (1.5-2.4); PRO BRAIN NATRIURETIC PEPTIDE 2543 PG/ML (0-125); SODIUM 136 MMOL/L (135-145); TOTAL CARBON DIOXIDE 28.7 MMOL/L (24-32); TOTAL PROTEIN 8.4 G/DL (6.4-8.2)
[2022-12-22 09:11] LABS: BUN/CREATININE RATIO 21.9 (10.0-20.0); CREATININE 1.05 MG/DL (0.60-1.10)
[2022-12-22 09:12] LABS: eCRCL 76 ML/MIN; eGFR 73 ML/MIN
--- NOTE | 2022-12-22 10:00 | NUR ---
Dr. Hedrick aware of patients HR elevated and sustaining in the 160's. New order will be put in by .
[2022-12-22] MEDS ORDERED: carVEDilol 3.125mg tablet PO SCH (10:05)
--- NOTE | 2022-12-22 10:22 | NUR ---
Patient up to the restroom, HR elevates to the 180's. Patient back to bed currently and new medication given, Carvedilol.
[2022-12-22 10:47] VITALS: RESP 16
--- NOTE | 2022-12-22 11:34 | NUR ---
Student documentation: I have reviewed all interventions, assessments performed and documented by Jose Miguel MORRIS of [facility]. For all medication-administrations in the time frame of 0600 to 1830, all medications were reviewed, dispensed, administered and documented per hospital policy by Jose Miguel MORRIS of [facility].
[2022-12-22 12:09] VITALS: BP 141/96; PULSE 80; RESP 22; TEMP 99.3; O2SAT 100
[2022-12-22] MEDS ORDERED: METO-395 PO (14:42)
[2022-12-22] MEDS ORDERED: APIX5TAB3 PO (14:42)
[2022-12-22] MEDS ORDERED: EMPA10TA PO (14:42)
[2022-12-22 15:37] VITALS: BP 120/76; PULSE 78; RESP 18; TEMP 98.3; O2SAT 96
--- NOTE | 2022-12-22 16:20 | NUR ---
Security in room with patient, he is refusing to leave. IV has been taken out, SS is getting clothing for patient. Patient is stating he wants a bus ticket to "[place]". Bus ticket to distination in [place] is being given Addendum: 12/22/22 at 1622 by Sonali Moses RN Bus ticket will be given to patient for his choice of destination in [place].
--- NOTE | 2022-12-22 16:37 | NUR ---
Patient provided with shoes, found his own clothing. Discharge paper work taken along with 2 bus tickets. Patient aware he has new medications to pickup at [facility] [employer]. Patient gave number to Jessica to call for further arrangements. IV taken out. Security escorted patient to lobby. [facility] was offered to patient and he stated he would not stay there.
--- NOTE | 2022-12-22 16:43 | NUR ---
Patient refused to sign discharge paper work. Education provided, patient would not acknowledge understanding verbally. All dates for patients next doses of medications written out on discharge paper work. Patient aware to follow up with his PCP, but would not acknowledge understanding. Patient is discharged.
[2022-12-22] MEDS ORDERED: carVEDilol 12.5mg tablet PO SCH (20:00)
[2022-12-23] MEDS ORDERED: losartan 25mg tablet PO SCH (08:00)
[2022-12-23] MEDS ORDERED: spironolactone 25 MG tablet PO SCH (08:00)
[2022-12-23] MEDS ORDERED: potassium Cl 20 mEq SR tablet PO SCH (08:00)
[2022-12-23] MEDS ORDERED: aspirin 81mg tab.chew PO SCH (08:00)
[2022-12-23] MEDS ORDERED: diltiazem CD 180mg cap (once-daily) PO SCH (08:00)
== END 2022-12-22 16:36 | disposition home or self-care (01) | DRG 194 ==
LOC: ER 18:24 → ED HOLD 21:10 → PCU 3S 12-20 07:12
PROVIDERS: ADMIT Internal Medicine; ATTEND Internal Medicine
DX: I11.0 Hypertensive heart disease with heart failure (principal); I48.92 Unspecified atrial flutter; I48.91 Unspecified atrial fibrillation; B19.20 Unspecified viral hepatitis C without hepatic coma; I50.23 Acute on chronic systolic (congestive) heart failure; F31.9 Bipolar disorder, unspecified; Z82.5 Family history of asthma and other chronic lower respiratory diseases; Z83.3 Family history of diabetes mellitus; Z79.82 Long term (current) use of aspirin; Z79.899 Other long term (current) drug therapy; Z59.00 Homelessness unspecified
CPT/HCPCS: 36415; 80053; 83735; 83880; 84132; 85025; 87081; 99285; G0378; J1940

== ENCOUNTER 2023-01-05 21:43 | Inpatient (IN) | payer MEDICAID ==
[~2023-01-05] VITALS: Ht 172.7 cm; Wt 65.0 kg
[~2023-01-05 21:43] MED LIST changes: +APIX5TAB3 PO; -CARV-50 PO; +EMPA10TA PO; +METO-395 PO
[2023-01-05 21:58] LABS: BASOPHILS # (AUTO) 0.1 X10'3 (0-0.2); BASOPHILS % (AUTO) 1.1 % (0-1); EOSINOPHILS # (AUTO) 0.2 X10'3 (0-0.9); EOSINOPHILS % (AUTO) 3.2 % (0-6); HEMATOCRIT 33.7 % (42.0-52.0); LYMPHOCYTES # (AUTO) 1.1 X10'3 (1.1-4.8); LYMPHOCYTES % (AUTO) 16.5 % (21-51); MEAN CORPUSCULAR HEMOGLOBIN 32.2 PG (27.0-31.0); MEAN CORPUSCULAR HGB CONC 32.7 g/dL (33.0-36.5); MEAN CORPUSCULAR VOLUME 98.6 FL (78-98); MEAN PLATELET VOLUME 9.6 FL (7.4-10.4); MONOCYTES # (AUTO) 0.5 X10'3 (0-0.9); MONOCYTES % (AUTO) 7.8 % (2-12); NEUTROPHILS # (AUTO) 4.9 X10'3 (1.8-7.7); NEUTROPHILS % (AUTO) 71.4 % (42-75); PLATELET COUNT 127 X10'3 (140-440); RED BLOOD COUNT 3.42 X10'6 (4.70-6.10); RED CELL DISTRIBUTION WIDTH 15.5 % (11.5-14.5); WHITE BLOOD COUNT 6.9 X10'3 (4.5-11.0)
[2023-01-05 22:10] LABS: ALANINE AMINOTRANSFERASE 11 U/L (12-78); ALBUMIN 3.5 G/DL (3.4-5.0); ALKALINE PHOSPHATASE 70 IU/L (46-116); ANION GAP 8 (8-16); ASPARTATE AMINO TRANSFERASE 27 U/L (10-37); BILIRUBIN,TOTAL 0.8 MG/DL (0.1-1.0); BLOOD UREA NITROGEN 22 MG/DL (7-18); CALCIUM 9.1 MG/DL (8.5-10.1); CHLORIDE 104 MMOL/L (99-107); CREATININE 1.16 MG/DL (0.60-1.10); GLUCOSE 78 MG/DL (70-104); POTASSIUM 3.9 MMOL/L (3.5-5.1); SODIUM 141 MMOL/L (135-145); TOTAL CARBON DIOXIDE 29.5 MMOL/L (24-32); TOTAL PROTEIN 7.1 G/DL (6.4-8.2); eGFR 65 ML/MIN
[2023-01-05 22:18] LABS: PRO BRAIN NATRIURETIC PEPTIDE 8886 PG/ML (0-125)
[2023-01-06] VITALS (9 sets, daily range): BP systolic 134–159; BP diastolic 78–107; PULSE 107–137; RESP 16–28; TEMP 97.9; O2SAT 98–100
[2023-01-06] MEDS ORDERED: HYDROcodone/acetaminophen 5mg/325mg tablet PO PRN (03:25)
[2023-01-06] MEDS ORDERED: acetaminophen 325mg tablet PO PRN ×2 (03:25)
[2023-01-06] MEDS ORDERED: morphine 2 MG/ML inj. syringe IV PRN (03:25)
[2023-01-06] MEDS ORDERED: ondansetron 4mg rapidly disintigrating tab PO PRN (03:25)
[2023-01-06] MEDS ORDERED: diphenhydrAMINE 50 mg/ml inj IV PRN (03:25)
[2023-01-06] MEDS ORDERED: mag hydrox/Alum hydrox/simeth 30ml oral suspension PO PRN (03:25)
[2023-01-06] MEDS ORDERED: ondansetron/PF 4mg/2ml inj IV PRN (03:25)
[2023-01-06] MEDS ORDERED: diphenhydrAMINE 25mg capsule PO PRN (03:25)
[2023-01-06] MEDS ORDERED: bisacodyl 10mg suppository rectal RC PRN (03:25)
[2023-01-06] MEDS ORDERED: magnesium hydroxide 30ml (MOM) UD suspension PO PRN (03:25)
[2023-01-06] MEDS ORDERED: metoprolol tartrate 1mg/ml inj IV PRN (03:30)
[2023-01-06] MEDS ORDERED: regadenoson 0.4mg/5ml syringe IV PRN (03:30)
[2023-01-06] MEDS ORDERED: nitroGLYCERIN 0.4mg SUBLingual tab SL PRN (03:30)
[2023-01-06] MEDS ORDERED: aminophylline 250mg/10ml inj. IV PRN (03:30)
[2023-01-06 03:51] LABS: MAGNESIUM 1.8 MG/DL (1.5-2.4); PHOSPHORUS 4.1 MG/DL (2.3-4.5)
[2023-01-06] MEDS: dextrose 5%-1/2 normal saline 1,000 ML IV SCH ×2 (04:01→13:25)
[2023-01-06 04:27] LABS: APTT 27 SECONDS (22-32); D-DIMER 0.57 MG/L FEU (0-0.50); INR 1.1 INR; PROTHROMBIN TIME 11.8 SECONDS (9.0-12.0)
[2023-01-06 04:30] LABS: URINE AMPHETAMINE SCREEN NEGATIVE (Neg); URINE BARBITUATE SCREEN NEGATIVE (Neg); URINE BENZODIAZEPINES SCREEN NEGATIVE (Neg); URINE CANNABINOID SCREEN POSITIVE (Neg); URINE COCAINE SCREEN NEGATIVE (Neg); URINE METHADONE SCREEN NEGATIVE (Neg); URINE OPIATE SCREEN NEGATIVE (Neg); URINE PHENCYCLIDINE SCREEN NEGATIVE (Neg)
--- NOTE | 2023-01-06 06:46 | NUR ---
PT NPO FOR [facility] SC[facility]
[2023-01-06] MEDS ORDERED: pantoprazole 40mg Tablet.DR PO SCH (07:30)
[2023-01-06] MEDS ORDERED: docusate sod 100mg capsule PO SCH (08:00)
[2023-01-06] MEDS ORDERED: nicotine 21mg patch - 24 hr TD ONE (08:00)
--- NOTE | 2023-01-06 08:47 | NUR ---
PT TO [facility]
--- NOTE | 2023-01-06 14:11 | NUR ---
CONTACTED [facility], LEFT MESSAGE WITH SCIENTIFIC DIRECTOR TO CALL BACK TO VERIFY BED AVAILABILITY.
[2023-01-06] MEDS ORDERED: ACET650T12 PO (14:13)
[2023-01-06] MEDS ORDERED: DOCU100C38 PO (14:14)
[2023-01-06] MEDS ORDERED: metoprolol tartrate 1mg/ml inj IV ONE (14:35)
--- NOTE | 2023-01-06 15:00 | NUR ---
PAGEAbdiel GARRETT, NOTIFIED OF SUSTAINED TACHYCARDIA AND HIGH BP. ADVISED TO GIVE 5MG IV METOPROLOL AND PROCEED TO DISCHARGE.
[2023-01-06] MEDS ORDERED: AMIO200T67 PO (16:10)
[2023-01-06] MEDS ORDERED: amiodarone 200mg tablet PO ONE (16:10)
[2023-01-06] MEDS ORDERED: temazepam 15mg capsule PO PRN (21:00)
== END 2023-01-06 16:07 | disposition home or self-care (01) | DRG 203 ==
LOC: ER 21:44 → ED HOLD 01-06 03:26
PROVIDERS: ADMIT Family Medicine; ATTEND Internal Medicine
PROC: 4A02XM4 Measurement of Cardiac Total Activity, External Approach (ICD-10-PCS; principal; 2023-01-06)
PROC: 3E033HZ Introduction of Radioactive Substance into Peripheral Vein, Percutaneous Approach (ICD-10-PCS; 2023-01-06)
DX: R07.89 Other chest pain (principal); I50.23 Acute on chronic systolic (congestive) heart failure; N17.9 Acute kidney failure, unspecified; D53.9 Nutritional anemia, unspecified; I13.0 Hypertensive heart and chronic kidney disease with heart failure and stage 1 through stage 4 chronic kidney disease, or unspecified chronic kidney disease; N18.2 Chronic kidney disease, stage 2 (mild)
CPT/HCPCS: 36415; 71045; 78452; 80053; 80305; 83735; 83880; 84100; 84484; 85025; 85379; 85610; 85730; 93017; 99285; A9500; G0378; J2785; J3490

== ENCOUNTER 2023-01-10 18:52 | Inpatient (IN) | payer MEDICAID ==
[~2023-01-10] VITALS: Ht 172.7 cm; Wt 76.0 kg
[~2023-01-10 18:52] MED LIST changes: +ACET650T12 PO; +AMIO200T67 PO; +DOCU100C38 PO; +heparin, porcine-25,000 units/D5-250ml premix IV ONE; +metoprolol tartrate 1mg/ml inj IV ONE
[2023-01-10] MEDS ORDERED: aspirin 81mg tab.chew PO ONE (19:15)
--- NOTE | 2023-01-10 19:27 | NUR ---
Pt refused cath prep. Pt will not allow this emt to shave karime. MD carroll at bedside educating the pt. aware of pt refusing cath prep.
[2023-01-10 19:36] LABS: BASOPHILS # (AUTO) 0.1 X10'3 (0-0.2); BASOPHILS % (AUTO) 0.7 % (0-1); EOSINOPHILS # (AUTO) 0.1 X10'3 (0-0.9); EOSINOPHILS % (AUTO) 0.7 % (0-6); HEMATOCRIT 33.7 % (42.0-52.0); LYMPHOCYTES % (AUTO) 12.7 % (21-51); MEAN CORPUSCULAR HEMOGLOBIN 32.2 PG (27.0-31.0); MEAN CORPUSCULAR HGB CONC 32.6 g/dL (33.0-36.5); MEAN PLATELET VOLUME 9.1 FL (7.4-10.4); MONOCYTES # (AUTO) 0.8 X10'3 (0-0.9); MONOCYTES % (AUTO) 9.9 % (2-12); NEUTROPHILS # (AUTO) 5.9 X10'3 (1.8-7.7); PLATELET COUNT 128 X10'3 (140-440); RED CELL DISTRIBUTION WIDTH 15.5 % (11.5-14.5); WHITE BLOOD COUNT 7.7 X10'3 (4.5-11.0)
[2023-01-10] MEDS ORDERED: heparin 1,000unit/ml 10ml vial 0 ML ONE (19:38)
[2023-01-10] MEDS ORDERED: verapamil 2.5 mg/ml inj IV ONE (19:38)
[2023-01-10] MEDS ORDERED: iohexol 350MG/ML 100ml bottle IV ONE (19:38)
[2023-01-10] MEDS ORDERED: midazolam 1 mg/ML 2ml injection ONE (19:38)
[2023-01-10] MEDS ORDERED: heparin 1,000 UNITS/NS 500ml 0 ML ONE (19:39)
[2023-01-10] MEDS ORDERED: LIDOcaine 1% (10mg/ml)w/preservative inj. 20ml MDV ONE (19:40)
[2023-01-10] MEDS ORDERED: fentaNYL/PF 50MCG/1 ML 2ML syringe ONE (19:40)
[2023-01-10] MEDS ORDERED: nitroGLYCERIN 500mcg/5mL D5W 0 ML IV ONE (19:41)
[2023-01-10 19:50] LABS: ALANINE AMINOTRANSFERASE 11 U/L (12-78); ALBUMIN 3.4 G/DL (3.4-5.0); ALBUMIN/GLOBULIN RATIO 0.9 (1.1-1.5); ALKALINE PHOSPHATASE 78 IU/L (46-116); ANION GAP 7 (8-16); ASPARTATE AMINO TRANSFERASE 25 U/L (10-37); BILIRUBIN,TOTAL 1.2 MG/DL (0.1-1.0); BLOOD UREA NITROGEN 20 MG/DL (7-18); BUN/CREATININE RATIO 16.5 (10.0-20.0); CALCIUM 8.6 MG/DL (8.5-10.1); CHLORIDE 103 MMOL/L (99-107); CREATININE 1.21 MG/DL (0.60-1.10); GLUCOSE 95 MG/DL (70-104); POTASSIUM 4.5 MMOL/L (3.5-5.1); SODIUM 136 MMOL/L (135-145); TOTAL CARBON DIOXIDE 26.5 MMOL/L (24-32); TOTAL PROTEIN 7.3 G/DL (6.4-8.2); eCRCL 66 ML/MIN; eGFR 62 ML/MIN
[2023-01-10 19:58] LABS: PRO BRAIN NATRIURETIC PEPTIDE 10578 PG/ML (0-125)
--- NOTE | 2023-01-10 20:01 | NUR ---
Patient is refusing all invasive procedures. He does not want a stent, balloon, or pacemaker. Pt agrees to management by Medication. Bolt Cutter educated patient on risks associated with refusing procedure including .
[2023-01-10] MEDS ORDERED: temazepam 15mg capsule PO PRN (21:00)
[2023-01-10 21:10] LABS: BILIRUBIN,URINE NEGATIVE (Neg); CLARITY,URINE CLEAR (Clear); COLOR,URINE YELLOW (Yellow); GLUCOSE, URINE NEGATIVE (Neg); KETONES,URINE NEGATIVE (Neg); LEUKOCYTE ESTERASE ,URINE NEGATIVE (Neg); NITRITES, URINE NEGATIVE (Neg); OCCULT BLOOD,URINE NEGATIVE (Neg); PH,URINE 6.5 (4.8-8.0); PROTEIN,URINE 100 mg/dl (Neg)
[2023-01-10 21:11] LABS: UA COLLECTION TYPE URINAL
[2023-01-10 21:22] LABS: BACTERIA,URINE NONE SEEN /HPF (Neg); MUCUS STRANDS NONE SEEN /LPF (Neg); RBC,URINE 0-2 /HPF (0-2); SQUAMOUS EPITHELIAL CELL,UR FEW /LPF (FEW); WBC,URINE 0-4 /HPF (0-4)
[2023-01-10 21:25] LABS: URINE AMPHETAMINE SCREEN NEGATIVE (Neg); URINE BARBITUATE SCREEN NEGATIVE (Neg); URINE BENZODIAZEPINES SCREEN NEGATIVE (Neg); URINE CANNABINOID SCREEN POSITIVE (Neg); URINE COCAINE SCREEN NEGATIVE (Neg); URINE METHADONE SCREEN NEGATIVE (Neg); URINE OPIATE SCREEN NEGATIVE (Neg); URINE PHENCYCLIDINE SCREEN NEGATIVE (Neg)
[2023-01-10] MEDS ORDERED: acetaminophen 650mg rectal suppository RC PRN (22:05)
[2023-01-10] MEDS ORDERED: mag hydrox/Alum hydrox/simeth 30ml oral suspension PO PRN (22:05)
[2023-01-10] MEDS ORDERED: bisacodyl 10mg suppository rectal RC PRN (22:05)
[2023-01-10] MEDS ORDERED: morphine 2 MG/ML inj. syringe IV PRN (22:05)
[2023-01-10] MEDS ORDERED: ondansetron 4mg rapidly disintigrating tab PO PRN (22:05)
[2023-01-10] MEDS ORDERED: HYDROcodone/acetaminophen 5mg/325mg tablet PO PRN (22:05)
[2023-01-10] MEDS ORDERED: ondansetron/PF 4mg/2ml inj IV PRN (22:05)
[2023-01-10] MEDS ORDERED: diphenhydrAMINE 50 mg/ml inj IV PRN (22:05)
[2023-01-10] MEDS ORDERED: magnesium hydroxide 30ml (MOM) UD suspension PO PRN (22:05)
[2023-01-10] MEDS ORDERED: ipratropium/albuterol 3ml nebule NEB PRN (22:05)
[2023-01-10] MEDS ORDERED: acetaminophen 325mg tablet PO PRN (22:05)
[2023-01-10] MEDS ORDERED: diphenhydrAMINE 25mg capsule PO PRN (22:05)
[2023-01-10] MEDS ORDERED: normal saline 1000ml 1,000 ML IV SCH (22:05)
[2023-01-10] MEDS ORDERED: digoxin 250mcg/ml 2ml ampule IV ONE (22:10)
[2023-01-10] MEDS ORDERED: DOBUTamine-DoBUTrex 500mg/D5W 250 ML IV SCH (22:10)
[2023-01-10 22:30] LABS: MAGNESIUM 1.9 MG/DL (1.5-2.4); PHOSPHORUS 4.3 MG/DL (2.3-4.5)
[2023-01-10 22:44] LABS: OSMOLALITY 288 MOSM/K (280-300)
[2023-01-10 22:52] LABS: APTT 27 SECONDS (22-32); INR 1.1 INR; PROTHROMBIN TIME 12.2 SECONDS (9.0-12.0)
[2023-01-10 23:13] LABS: ABG BASE EXCESS -2.1 mmol/L (-2.0-2.0); ABG HCO3 21.5 mmol/L (22.0-26.0); ABG OXYGEN SATURATION 94.9 % (94-97); ABG PCO2 (T) 33.2 mmHg (35.0-48.0); ALLEN'S TEST POSITIVE; FCOHb 0.3 % (0.0-3.9); FHHb 5.1 % (0.0-5.0); FMetHb 0.2 % (0.0-1.5); FO2Hb 94.4 % (94-97); MODE ROOM AIR; PATIENT TEMPERATURE 37.3; TOTAL HEMOGLOBIN 11.3 G/dl (14.0-17.9)
--- NOTE | 2023-01-10 23:40 | NUR ---
ER MD called STEMI ALERT, on patient based on EKG. STEMI box obtained from [place] and STEMI Protocol followed. Pt was given baby aspirin x 4 PO. Per ER MD, Pt given metoprolol 5 MG IV for elevated heart rate and blood pressure at 1932. Per protocol and ER MD order, Heparin, 4000 bolus and 900 units/hour started. Per Frothing Machine Operator, 1939, Pt given another dose of Metoprolol 5 MG IV. Pt troponin not noted to be elevated, Per tube bender hand, Heparin stopped
[2023-01-11] VITALS (7 sets, daily range): BP systolic 120–153; BP diastolic 81–105; PULSE 95–125; RESP 16–20; TEMP 97.3–98.2; O2SAT 95–100
[2023-01-11] MEDS ORDERED: FURO-149 PO (01:22)
[2023-01-11] MEDS ORDERED: EMPA10TA PO (01:22)
[2023-01-11] MEDS ORDERED: METO-539 PO (01:22)
[2023-01-11] MEDS ORDERED: APIX5TAB3 PO (01:22)
[2023-01-11] MEDS ORDERED: ACET325T55 PO (01:22)
[2023-01-11] MEDS ORDERED: AMIO100T4 PO (01:22)
[2023-01-11] MEDS ORDERED: DOCU100C40 PO (01:22)
[2023-01-11 06:30] LABS: ALBUMIN 3.1 G/DL (3.4-5.0); ALBUMIN/GLOBULIN RATIO 0.9 (1.1-1.5); ALKALINE PHOSPHATASE 66 IU/L (46-116); ANION GAP 10 (8-16); ASPARTATE AMINO TRANSFERASE 26 U/L (10-37); BLOOD UREA NITROGEN 19 MG/DL (7-18); BUN/CREATININE RATIO 20.2 (10.0-20.0); CALCIUM 8.6 MG/DL (8.5-10.1); CHLORIDE 105 MMOL/L (99-107); CREATININE 0.94 MG/DL (0.60-1.10); GLUCOSE 99 MG/DL (70-104); POTASSIUM 4.1 MMOL/L (3.5-5.1); SODIUM 137 MMOL/L (135-145); TOTAL CARBON DIOXIDE 22.3 MMOL/L (24-32); TOTAL PROTEIN 6.5 G/DL (6.4-8.2); eCRCL 85 ML/MIN; eGFR 83 ML/MIN
[2023-01-11 06:32] LABS: BASOPHILS # (AUTO) 0.1 X10'3 (0-0.2); BASOPHILS % (AUTO) 1.1 % (0-1); EOSINOPHILS # (AUTO) 0.1 X10'3 (0-0.9); EOSINOPHILS % (AUTO) 1.6 % (0-6); HEMATOCRIT 31.8 % (42.0-52.0); HEMOGLOBIN 10.5 g/dl (14.0-17.9); LYMPHOCYTES % (AUTO) 18.6 % (21-51); MEAN CORPUSCULAR HEMOGLOBIN 32.2 PG (27.0-31.0); MEAN CORPUSCULAR HGB CONC 32.9 g/dL (33.0-36.5); MEAN PLATELET VOLUME 9.6 FL (7.4-10.4); MONOCYTES # (AUTO) 0.6 X10'3 (0-0.9); MONOCYTES % (AUTO) 11.9 % (2-12); NEUTROPHILS # (AUTO) 3.5 X10'3 (1.8-7.7); NEUTROPHILS % (AUTO) 66.8 % (42-75); PLATELET COUNT 114 X10'3 (140-440); RED BLOOD COUNT 3.25 X10'6 (4.70-6.10); RED CELL DISTRIBUTION WIDTH 15.3 % (11.5-14.5); WHITE BLOOD COUNT 5.3 X10'3 (4.5-11.0)
[2023-01-11 06:33] LABS: ALANINE AMINOTRANSFERASE 6 U/L (12-78)
--- NOTE | 2023-01-11 06:40 | NUR ---
Patient in room PCU 3013. I have received report from BERNARDA CARVAJAL, and had the opportunity to ask questions and assume patient care.
[2023-01-11] MEDS ORDERED: pantoprazole 40mg Tablet.DR PO SCH (07:30)
[2023-01-11] MEDS ORDERED: docusate sod 100mg capsule PO SCH ×2 (08:00→20:00)
[2023-01-11] MEDS ORDERED: EMPAGLIFLOZIN 10 MG TABLET PO SCH (09:00)
--- NOTE | 2023-01-11 09:53 | NUR ---
PAGE SENT PAGER ID: [phone] MESSAGE: [id number], SERENE CALL, PT'S DOBUTAMINE GTT NOT STARTED LAST NIGHT. DO YOU WANT TO CONTINUE TO THE ORDER? PT IN AFIB, HR [phone]. THANK YOU, GAURAV [phone]
[2023-01-11] MEDS ORDERED: furosemide 40mg tablet PO SCH (10:00)
[2023-01-11] MEDS ORDERED: metoprolol succinate 25mg (24-HOUR) SR. Tablet PO SCH (10:00)
[2023-01-11] MEDS ORDERED: amiodarone/D5 360MG/200ML BAG 200 ML IV SCH (10:20)
[2023-01-11] MEDS ORDERED: losartan 25mg tablet PO SCH (11:00)
[2023-01-11] MEDS ORDERED: spironolactone 25 MG tablet PO SCH (11:00)
[2023-01-11] MEDS ORDERED: aspirin 81mg tab.chew PO SCH (11:00)
[2023-01-11] MEDS ORDERED: guaiFENesin 200 MG/10 ML oral syrup UD cup PO PRN (12:05)
--- NOTE | 2023-01-11 13:45 | NUR ---
PT EXPRESSES PARANOID THOUGHTS THAT HE IS BEING MONITORED FROM [facility], THIS NURSE IS "MAKING HIM COUGH". THE PT WAS YELLING, STOPPED WHEN HE WAS TOLD TO, BUT SAID THAT HE WOULD YELL AGAIN. THE PT IS LABILE IN MOOD, COOPERATIVE AT TIMES, THEN REFUSING TREATMENT. THE PT IS HYPERVERBAL.
--- NOTE | 2023-01-11 15:49 | NUR ---
PT LEFT AMA. PT REFUSED TO SIGN PAPERWORK. BELONGINGS GATHERED AND GIVEN TO PT. EVIN PAPERWORK SIGNED BY THIS NURSE AND CAMILO PERERA. Addendum: 01/11/23 at 1553 by Charlene Cox RN PT EDUCATED ON [facility]EL[facility]. PT ENC TO STAY AND CONTINUE TREATMENT. PIV's REMOVED WITH TIPS INTACT. TELE BOX REMOVED.
--- NOTE | 2023-01-11 15:49 | NUR ---
PAGE SENT PAGER ID: [phone] MESSAGE: [id number], SERENE CALL PT HAS LEFT AMA. THANK YOU, GAURAV [phone]
--- NOTE | 2023-01-11 16:48 | NUR ---
Student documentation: I have reviewed all interventions, assessments performed and documented by SN Hernandez from [facility] .
[2023-01-11] MEDS ORDERED: apixaban 5mg tablet PO SCH (20:00)
[2023-01-11] MEDS ORDERED: amiodarone 100mg tablet PO SCH (20:00)
[2023-01-11] MEDS ORDERED: amiodarone 200mg tablet PO SCH (20:00)
== END 2023-01-11 15:46 | disposition left against medical advice (07) | DRG 194 ==
LOC: ER 18:53 → ED HOLD 22:07 → PCU 3S 01-11 00:56
PROVIDERS: ADMIT Family Medicine; ATTEND Internal Medicine
DX: I13.0 Hypertensive heart and chronic kidney disease with heart failure and stage 1 through stage 4 chronic kidney disease, or unspecified chronic kidney disease (principal); I21.A1 Myocardial infarction type 2; N17.9 Acute kidney failure, unspecified; F17.200 Nicotine dependence, unspecified, uncomplicated; I50.23 Acute on chronic systolic (congestive) heart failure; D64.9 Anemia, unspecified; F12.10 Cannabis abuse, uncomplicated; I48.91 Unspecified atrial fibrillation; J44.9 Chronic obstructive pulmonary disease, unspecified; F31.9 Bipolar disorder, unspecified; N18.9 Chronic kidney disease, unspecified; K76.89 Other specified diseases of liver; E78.5 Hyperlipidemia, unspecified; Z20.822 Contact with and (suspected) exposure to COVID-19; R16.1 Splenomegaly, not elsewhere classified; F15.10 Other stimulant abuse, uncomplicated; Z53.29 Procedure and treatment not carried out because of patient's decision for other reasons; Z59.00 Homelessness unspecified; Z82.5 Family history of asthma and other chronic lower respiratory diseases; Z83.3 Family history of diabetes mellitus; Z79.899 Other long term (current) drug therapy; Z86.19 Personal history of other infectious and parasitic diseases; Z56.0 Unemployment, unspecified
CPT/HCPCS: 36415; 36600; 71045; 80053; 80305; 81001; 82803; 83735; 83880; 83930; 84100; 84484; 85018; 85025; 85610; 85730; 87811; 94760; 99285; A6258; C1769; G0378; J0282; J1644; J2250; J3010; J3490; Q9967